=== PATIENT | male | born 1950 | race Caucasian/White ===

== ENCOUNTER 2019-01-14 09:11 | Outpatient (CLI) | payer MEDICARE, OTHER, SELFPAY ==
[2019-01-17 09:29] LABS: PSA, Screening 0.8 ng/ml (0-4.5)
== END 2019-01-14 09:31 ==
PROVIDERS: PCP Emergency Medicine; Visit Provider Emergency Medicine
DX: Z12.5 Encounter for screening for malignant neoplasm of prostate (principal)
CPT/HCPCS: 36415; 84153

== ENCOUNTER 2019-12-29 02:36 | Outpatient (CLI) | payer MEDICARE, OTHER, SELFPAY ==
[2019-12-29 08:01] LABS: Absolute Basophil Count 0.02 k/cumm (0.0-0.2); Absolute Eosinophil Count 0.09 k/cumm (0.0-0.7); Absolute Lymphocyte Count 1.85 k/cumm (1.2-3.4); Absolute Monocyte Count 0.57 k/cumm (0.11-0.7); Absolute Neutrophil Count 4.62 k/cumm (1.2-6.7); Basophils % 0.3; Eosinophils % 1.3; HCT 45.3 % (40.0-50.0); HGB 15.8 g/dL (13.5-17.5); Lymphocytes % 25.9; Mean Corp. HGB Concentration 34.9 g/dL (32.0-36.0); Mean Corpuscular Hemoglobin 32.9 pg (27.0-33.0); Mean Corpuscular Volume 94.4 fL (80-95); Neutrophils % 64.5; Platelet Count 235 x1000/uL (130-400); White Blood Cell Count 7.15 k/cumm (4.4-10.8)
[2019-12-29 08:35] LABS: ESR 8 mm/hr (1-20)
[2019-12-30 10:13] LABS: Lyme Ab w Rflx to Lyme Confirm Negative (Negative)
[2020-01-02 19:22] LABS: Anaplasma phagocytophilum Negative (Negative); B. miyamotoi PCR Negative (Negative); Babesia divergens/MO-1 Negative (Negative); Babesia duncani Negative (Negative); Babesia microti Negative (Negative); Ehrlichia chaffeensis Negative (Negative); Ehrlichia ewingii/canis Negative (Negative); Ehrlichia muris eauclairensis Negative (Negative)
== END 2019-12-29 02:56 ==
PROVIDERS: PCP Emergency Medicine; Visit Provider Family Medicine
DX: M25.50 Pain in unspecified joint (principal)
CPT/HCPCS: 36415; 85652; 87798; 85025; 86618

== ENCOUNTER 2020-07-06 13:22 | Outpatient (CLI) | payer MEDICARE, OTHER, SELFPAY ==
[2020-07-09 21:32] LABS: COVID-19 RT-PCR Result NEGATIVE (Negative)
== END 2020-07-06 13:42 ==
PROVIDERS: PCP Emergency Medicine; Visit Provider Emergency Medicine
DX: Z11.59 Encounter for screening for other viral diseases (principal)
CPT/HCPCS: U0003

== ENCOUNTER 2021-04-29 12:51 | Outpatient (REF) | payer MEDICARE, OTHER, SELFPAY ==
[2021-04-30 14:30] LABS: COVID-19 RT-PCR UVMMC Result Negative (Negative)
== END 2021-04-29 12:52 | disposition home or self-care (01) ==
LOC: LBN 12:51
PROVIDERS: PCP Emergency Medicine; Visit Provider Family Medicine
DX: Z20.822 Contact with and (suspected) exposure to COVID-19 (principal); R05.9 Cough, unspecified
CPT/HCPCS: U0003; U0005

== ENCOUNTER 2021-08-28 08:52 | Outpatient (CLI) | payer MEDICARE, SELFPAY ==
--- NOTE | 2021-08-28 10:50 | DI.MRI_ITS ---
Exam(s) MR LOWER JOINT RT WO EXAM: MR LOWER JOINT RT WO CLINICAL HISTORY: achilles tear, S86.019A TECHNIQUE: Multiplanar multisequence MRI was performed without intravenous contrast. COMPARISON: No exams were available for comparison FINDINGS: SKIN: No evidence of ulcer nor subcutaneous tract. BONES/JOINTS: No evidence of fracture nor bone contusion. No joint effusion is present. The talar do me appears unremarkable. The ankle mortise is maintained. There is no evidence of para-articular ga nglion.There is no evidence of osseous tarsal coalition. LIGAMENTS: The anterior and posterior tibiofibular and calcaneofibular ligaments are intact. The ante rior and posterior talofibular ligaments are intact. The deltoid ligament is intact. SINUS TARSI: There is effacement of the normal fat signal in this space. Interosseous ligament is in tact. There is no evidence of sinus tarsi ganglion cyst. ANTEROLATERAL GUTTER:There is no abnormal signal/abnormal tissue in this space. MUSCULOTENDINOUS STRUCTURES: Achilles tendon: There is a high-grade full thick tear of the Achilles tendon starting 2.5 cm above t he posterior calcaneus insertion and with tear length approximately 6 cm. There are few strands of r emaining tendon within the interspace. Plantar fascia: Unremarkable. No evidence of tear, abnormal thickening, nor abnormal nodularity. Anterior Extensor tendons: Unremarkable. Medial Tendons: Posterior Tibialis: Unremarkable. No tear or tenosynovitis evident. Flexor Digitorum longus: Unremarkable. No tear or tenosynovitis evident. Flexor Hallicus longus: Unremarkable. No tear or tenosynovitis evident. Lateral Tendons: Peroneus longus: Unremarkable. No tear nor tenosynovitis evident. Peroneus brevis:Unremarkable. No tear nor tenosynovitis evident. SOFT TISSUES: Unremarkable. OTHER FINDINGS: None. IMPRESSION: There is a high-grade full-thickness tear of the Achilles tendon. DATA REPOSITORY:
== END 2021-08-28 09:12 ==
LOC: DI 09:01
PROVIDERS: PCP Family Medicine; Visit Provider Emergency Medicine
DX: S86.019A Strain of unspecified Achilles tendon, initial encounter (principal); X58.XXXA Exposure to other specified factors, initial encounter
CPT/HCPCS: 73721; 99203

== ENCOUNTER → 2021-09-11 15:03 | Outpatient (BNVA) | payer MEDICARE, SELFPAY | PROVIDERS: PCP Family Medicine; Referring Provider Family Medicine; Visit Provider Student in an Organized Health Care Education/Training Program | DX: S86.011D Strain of right Achilles tendon, subsequent encounter (principal); X58.XXXD Exposure to other specified factors, subsequent encounter | CPT/HCPCS: 99213 ==

== ENCOUNTER 2021-10-01 20:11 | Outpatient (REF) | payer MEDICARE, SELFPAY ==
[2021-10-01 19:43] LABS: HCT 49.8 % (40.0-50.0); MCH 31.9 pg (27.0-33.0); MCHC 34.1 % (32.0-36.0); MCV 93.4 fL (80-95); MPV 10.2 fL (8.0-11.0); Platelet Count 252 10^3/uL (130-400); RBC 5.33 10^6/uL (4.36-5.78); RDW 11.9 % (11.8-14.1); RDW-SD 41.1 fL; WBC 8.14 10^3/uL (4.4-10.8)
[2021-10-01 20:42] LABS: ALT 25 U/L (16-63); AST 13 U/L (15-37); Albumin 3.9 g/dL (3.4-5.0); Alkaline Phosphatase 52 U/L (46-116); Anion Gap 9.8 mmol/L (3-11); BUN 18 mg/dL (7-18); Bilirubin, Total 0.4 mg/dL (0.2-1.0); CO2 27.2 mmol/L (21.0-32.0); CREATININE 1.2 mg/dL (0.70-1.30); Calcium 8.7 mg/dL (8.5-10.1); Calculated LDL 85 mg/dL (<100); Chloride 106 mmol/L (98-107); Cholesterol 183 mg/dL (<200); Estimated GFR 59.86 (mL/min/1.73m2); Glucose 98 mg/dL (74-106); HDL Cholesterol 44 mg/dL (40-60); Potassium 4.6 mmol/L (3.5-5.1); Sodium 143 mmol/L (136-145); TSH 2.12 uIU/mL (0.36-3.74); Total Protein 7.3 g/dL (6.4-8.2); Triglyceride 271 mg/dL (<150); Vitamin B12 464 pg/mL (193-986)
[2021-10-02 18:21] LABS: PSA, Screening 1.2 ng/mL (0.0-6.5)
== END 2021-10-01 20:12 | disposition home or self-care (01) ==
LOC: LBN 20:11
PROVIDERS: PCP Family Medicine; Visit Provider Emergency Medicine
DX: E03.9 Hypothyroidism, unspecified (principal); R07.9 Chest pain, unspecified; R13.10 Dysphagia, unspecified; R68.89 Other general symptoms and signs; M25.50 Pain in unspecified joint; N40.0 Benign prostatic hyperplasia without lower urinary tract symptoms; Z12.5 Encounter for screening for malignant neoplasm of prostate
CPT/HCPCS: 80053; 80061; 84153; 85027; 82607; 84443

== ENCOUNTER → 2021-10-09 13:46 | Outpatient (BNVA) | payer MEDICARE, SELFPAY | PROVIDERS: PCP Family Medicine; Visit Provider Student in an Organized Health Care Education/Training Program | DX: S86.011A Strain of right Achilles tendon, initial encounter (principal); X58.XXXA Exposure to other specified factors, initial encounter | CPT/HCPCS: 99212 ==

== ENCOUNTER 2021-10-28 12:56 | Outpatient (CLI) | payer MEDICARE, SELFPAY ==
--- NOTE | 2021-10-28 08:10 | DI.US_ITS ---
Exam(s) US LOWER EXTREMITY VENOUS RT EXAM: US LOWER EXTREMITY VENOUS RT CLINICAL HISTORY: r leg swelling; h/o achilles rupture,? dvt. TECHNIQUE: Lower extremity venous ultrasound performed using grayscale, color-flow, and spectral Do ppler analysis. COMPARISON: No exams were available for comparison FINDINGS: The common femoral, femoral and popliteal veins demonstrate normal compressibility, augmentation, and color Doppler. The posterior tibial veins are patent. No saphenous vein thrombosis or other superfi cial venous thrombosis is seen. No hematoma or Castellon's cyst is seen. IMPRESSION: Negative lower extremity ultrasound. No evidence of DVT. DATA REPOSITORY:
== END 2021-10-28 13:16 ==
PROVIDERS: PCP Family Medicine; Visit Provider Nurse Practitioner Family
DX: R22.41 Localized swelling, mass and lump, right lower limb; M79.89 Other specified soft tissue disorders
CPT/HCPCS: 93971

== ENCOUNTER → 2021-11-20 13:02 | Outpatient (BNVA) | payer MEDICARE, SELFPAY | PROVIDERS: PCP Family Medicine; Referring Provider Family Medicine; Visit Provider Student in an Organized Health Care Education/Training Program | DX: S86.011A Strain of right Achilles tendon, initial encounter (principal); X58.XXXA Exposure to other specified factors, initial encounter | CPT/HCPCS: 99213 ==

== ENCOUNTER 2022-01-08 10:20 | Outpatient (CLI) | payer MEDICARE, SELFPAY ==
[2022-01-08 11:43] LABS: CREATININE 1.2 mg/dL (0.70-1.30); Estimated GFR 59.86 (mL/min/1.73m2)
== END 2022-01-08 10:21 | disposition home or self-care (01) ==
LOC: LBO 10:20
PROVIDERS: PCP Family Medicine; Visit Provider Nurse Practitioner Family
DX: U07.1 COVID-19 (principal)
CPT/HCPCS: 36415; 82565

== ENCOUNTER → 2022-01-22 13:18 | Outpatient (BNVA) | payer MEDICARE, SELFPAY | PROVIDERS: PCP Family Medicine; Referring Provider Family Medicine; Visit Provider Student in an Organized Health Care Education/Training Program | DX: S86.011D Strain of right Achilles tendon, subsequent encounter (principal); X58.XXXD Exposure to other specified factors, subsequent encounter | CPT/HCPCS: 99213 ==

== ENCOUNTER → 2022-03-10 08:46 | Outpatient (BNVA) | payer MEDICARE, SELFPAY | PROVIDERS: PCP Family Medicine; Referring Provider Family Medicine; Visit Provider Surgery | DX: Z12.11 Encounter for screening for malignant neoplasm of colon (principal); C44.91 Basal cell carcinoma of skin, unspecified; I25.118 Atherosclerotic heart disease of native coronary artery with other forms of angina pectoris | CPT/HCPCS: 99242 ==

== ENCOUNTER → 2022-03-14 00:31 | Outpatient (CLI) | payer MEDICARE, SELFPAY ==
--- OUTSIDE RECORDS SUMMARY | 2022-03-14 00:35 | XMS_ITS | Encounter Summary ---
:1950 Author Organization [facility] [place] [address] Care Team Providers Name Role Phone OneilScott sage Primary Care Provider Reason for Visit Reason Comments Suture / Staple Removal Encounter Details Date Type Department Care Team Description 04/14/2018 Clinical Support Dermatology at [facility] for suture Road removal [address] [place] [address] Social History Tobacco Use Types Packs/Day Years Used Date Never Smoker Smokeless Tobacco: Never Used Sex Assigned at Date Recorded Not on file documented as of this encounter Progress Notes Myrna Chandler RN - 04/14/2018 8:45 AM EDT Images from the original note were not included. Dermatologic Surgery Post-Operative Wound Check Patient: Bulmaro Rodrigues Today's Date: 04/14/2018 Date of : 1950 Chief complaint: [] Wound check [x] Suture removal History of Present Illness: Bulmaro Rodrigues is a 67 y.o. male who is status post Mohs micrographic excision for basal cell carcinoma, recurrent (twice), infiltrative, located on the right church (site). Surgery date was 04/07/18. The defect was repaired by complex linear closyre. Today, the patient reports contentment with the scar. Patient denies post- operative course complications and had an uneventful post-op course. Examination: Focused examination performed of the surgical site. See photograph below. Assessment: 1. Normal healing post-surgical site without any signs/symptoms of infection. Plan: 1. May discontinue wound care at this point. 2. Bandage is optional from hereon (if going to be exposed to dirt outdoors). 3. Around 8 weeks post-operative, patient may begin firm massage to any parts of the scar that may feel firm to touch, 3 minutes 3 times daily or 10 minutes twice daily. This will feel firm for 3-4 months until sutures dissolve under the skin. 5. Sutures removed 6. Recommend daily SPF 30-50 broad spectrum sunscreen and avoidance of sun to prevent sun-induced hyperpigmentation of scar. Can begin 1 week after suture removal. All other topicals and make-up can begin 1 week after suture removal. Shaving of the area can be resumed 1 week after suture removal (if applicable). Follow up 3 months for possible PDL/Kenalog Ifeanyi Butler MD - 04/14/2018 8:45 AM EDT Staff note: Bulmaro Rodrigues is a 67 y.o. male here for suture removal. Site doing well without s/s of infection.F/u in 3 months Ifeanyi Butler MD Mohs Micrographic Surgery and Dermatologic Oncology Section of Dermatology, Department of Surgery documented in this encounter Plan of Treatment Not on filedocumented as of this encounter Visit Diagnoses Diagnosis Visit for suture removal Encounter for removal of sutures documented in this encounter Care Teams Internet Manager Relationship Specialty Start Date End Date Scott Riggs DO PCP - General Family Medicine 12/25/[address] [place] [address] documented as of this encounter
--- OUTSIDE RECORDS SUMMARY | 2022-03-14 00:35 | XMS_ITS | Encounter Summary ---
:1950 Author Organization [facility] [place] [address] Care Team Providers Name Role Phone OneilScott sage Primary Care Provider Reason for Visit Reason Comments Basal Cell Carcinoma Encounter Details Date Type Department Care Team Description 04/07/2018 Procedure visit Dermatology at [facility], Basal cell carcinoma Road of right rastafari [address] [facility] [id number] [place] [address] [phone] Social History Tobacco Use Types Packs/Day Years Used Date Never Smoker Smokeless Tobacco: Never Used Sex Assigned at Date Recorded Not on file documented as of this encounter Last Filed Vital Signs Vital Sign Reading Time Taken Comments Blood Pressure 125/66 04/07/2018 8:48 AM EDT Pulse 52 04/07/2018 8:48 AM EDT Temperature - - Respiratory Rate - - Oxygen Saturation - - Inhaled Oxygen Concentration - - Weight - - Height - - Body Mass Index - - documented in this encounter Patient Instructions Patient InstructionsSo Perez, [facility] - 04/07/2018 8:45 AM EDT Your staff surgeon today was Ifeanyi Butler MD. Your wound(s) was repaired by [id number] stitches called a primary repair. You do not need to come back for suture removal because only absorbably sutures were used today. If the absorbable sutures bother your skin or do not absorb after 2 weeks, you may call us to remove them for you. Instructions are as below. Please keep this as a reference: Wound Care For wounds closed with absorbable-only stitches: ??? Gently remove your initial bandage (after 48 hours from surgery) and begin wound care as below. ??? If your initial bandage only lasts 24 hours (for example, falls off sooner), this is okay. Resume your wound care and bandaging instructions as below. ??? Change your bandage once a day (and whenever it becomes wet or soaks through). DO WOUND CARE FORONE WEEK. ??? For bandage changes: o Wash hands with soap and water, or use gloves that you can purchase a local pharmacy or drug store. o Clean the surgical area with cotton-tipped swabs or gauze dipped in soapy water (recommend liquid soap in clean room temperature water). Do not scrub the area or put direct shower water pressure ontoyour wound. It is okay to allow soapy water to run over your wound in the shower. o If you cannot remove crusted areas, you may soak with wet gauze first for 15 to 20 minutes to helpsoften it o Pat the area dry with clean gauze or cotton swabs. Do not rub. o Use a cotton swab to apply a generous layer of petroleum jelly over the incision lines and any open-wound areas. o Cover with clean nonstick gauze or other nonstick dressing, such as Telfa. This may be purchased over the counter at a drug store. Secure with paper tape or bandage. Band-aids are okay, but typicallyhave more adhesive that can irritate the skin compared to paper tape. o Continue wound care daily until stitches are removed. o Discontinue wound care after 7 days. o Allow the absorbable stitches to heal. If the top stitches that are absorbable are irritating yourskin, you may call us to have them removed. Otherwise, they will be absorbed naturally in approximately 2 weeks. It may absorb as quickly as 4 days. After Surgery 1. Avoid tobacco, smoking/vapors, cigars, and cannabis (marijuana) for at least 3 weeks after your surgery. These prevent proper healing and lead to worse scarring. Cutting back on tobacco is helpful if you cannot abstain completely. 2. Do not drink alcohol for roughly 3 days as this can slow healing or cause bleeding. 3. Do not participate in athletic activities for 1 week, unless you were told a different timeline during your visit. Athletic activity is a relative term, but this is considered to be anything that could potentially raise your heartrate or blood pressure. Elevating your heart rate and blood pressure increases the risk of swelling, bleeding, wound opening, and it could lead to worse scarring. Walkingat a leisurely pace is fine for most people, but not if you are walking for the purpose of exercise.When in doubt, take it easy or call us. 4. Do not lift anything heavier than 10 pounds until your sutures are removed. 5. Some it program manager may need to be delayed or delegated such as vacuuming, mowing the lawn, snow shoveling, or caring for young children that need to be carried/lifted. Working any major muscle groups increases your heart rate and can increasing bleeding. 6. Avoid swimming, hot tubs, and direct water pressure for 3 weeks after surgery. You may shower, however, once your initial bandage comes off in 48 hours. 7. Avoid antibiotic ointments such as triple antibiotic creams. Stick with your wound care instructions, please. 8. Whenever possible, it is helpful to take photographs with your camera or cell phone of any problems or concerns you see with your wound. We often ask for photos when you call with questions. 9. Starting 2 months following surgery, you can begin firm massage to any areas of firm scar along your incision to soften the scar and reduce bumpiness. Do this 3 times per day, 3 minutes each time. Do not start massage before 2 months. 10. Your wound will appear almost completely healed soon after sutures are removed (about 1 week), but incisions can remain bright red for several weeks. Then the scarring and healing process continuesunder the skin for 6 months until to 2 years. The scar may become less red, less firm, and more subtle during this time; please note that the rate of improvement varies depending on the person. Most redness, discoloration, bumpiness resolves by 6 months, and most patients will look presentable within a few weeks after surgery. 11. Keep your follow-up appointments and make sure to continue to have your skin checked, as often as is recommended by your checker bakery products, for new skin cancers. This is once per year for most patients. 12. Your can expect your scar to be red for several weeks with gradual fading of the redness. Your scar will also be raised and lumpy until the dissolvable sutures under the skin get absorbed by your body which can take 3-4 months. The scar will flatten eventually. a. If you have a skin condition called rosacea, the redness can last long-term, or you can get an increased appearance of red vessels to the skin. The appearance of vessels slightly improves, but tendsto respond well to laser treatments. 13. Occasionally, about 20% of the time on the face, the stitches under the skin can spit out of the incision to the surface. It can start out looking like a pimple or blemish directly on your incision. Sometimes you can feel something poking through the incision. it can look also minic a small areaof infection, so please let us know before you go to another provider for antibiotics. This means that the suture may need to be trimmed or removed when you return for your wound check. This typically occurs a few weeks after surgery if it does occur. 14. To optimize your scar, and best cosmetic result, please avoid direct sunlight to your incision for the first 6 months following surgery. UV ray exposure to your incision may cause the redness to last longer, or to cause permanent darkening of your scar. You can avoid sun by covering your incision w ith a bandage when outdoors, wearing broad-rimmed hats, and wearing SPF 30 to 50 sunscreen (broad spectrum). 15. Sometimes after your sutures are removed, your incision may still be healing for 1 more week. Because of this, avoid make-up and sunscreen until approximately 2 weeks after surgery. You can begin sooner if your skin edges look completely sealed. 16. Any time you have skin surgery or any type of surgery, you can experience mild sensation loss (numbness) in the area of surgery. Massage starting at 8 weeks after surgery can help. 17. Swelling and bruising is common, and expected, especially if your surgery site was on the forehead, cheeks, temples, nose, or eyelids. . Sometimes it can be quite profound, where the eyelids swell shut, or getting black eyes. This is especially true if you are on blood thinners such as aspirin. Swelling and bruising will peak at about 48 hours after surgery. Bruising and swelling will graduallyresolve. You can use ice packs or a bag of frozen peas for 15-20 minutes, 20 minutes off, up to 3-4 times daily to areas of swelling on the face. Use caution not to put the icy item directly onto your incision, or directly in contact with your skin as this can damage skin. Avoid prolonged use more than 20 minutes. The best way to use ice packs is over the bandage, or using a light cloth/paper towel barrier between the ice pack and your skin. You can ice for as many days as needed until swelling has resolved. Eyelid and lip swelling is typically the last type of swelling to resolve. o Keep in mind that if you do not want to use a bandage at all due to difficulty, allergies, irritation of skin, cost, time, or inconvenience --- you can certainly avoid bandages altogether. However, itis imperative that you continue with topical petrolatum ointment or Aquaphor (plain, fragrance-free). This may need to be applied several times daily if it gets wiped off, washed off, or dries out. Things to purchase for wound care: -Nonstick gauze -A tube or tub of petrolatum jelly (fragrance-free, no dye, not lotion) -paper tape -cotton swabs -gloves (optional) -Dial or other antibacterial liquid soap If you have specific questions or instructions, it can be written/typed by your nurse or doctor here: Antibiotics: If you were given antibiotic prescription, it is important to start them the evening of your surgerydate. However, most patients do not need antibiotics after surgery. For pain: Most patients of different ages do not require pain medications. If you do feel soreness, throbbing or sharp pains, start by taking over the counter extra strength acetaminophen (up to 3000 mg in a 24 hour period). Generally, we like you to avoid NSAIDS (non-steroid anti-inflammatory drugs such as ibuprofen) for the first 48 hours after surgery as this can increase risk of bleeding. However, if acetaminophen is not helping with pain, you can alternate acetaminophen with iburpofen or other NSAID. Icepacks over your bandage without getting your bandage wet can also help with pain and swelling. Frozen peas work well as ice packs. THIS IS AN EXAMPLE OF A PAIN TREATMENT SCHEDULE: 1) You can take 500 mg acetaminophen one tablet by mouth at 6:00pm. This is over the counter. 2) You can take 400 mg of ibuprofen two hours later, at 8:00 pm, or other NSAID such as naproxen, aslong as it does not interact with your other medications and your other doctors have not told you toavoid this. This is over the counter. Check to see how many milligrams (mg) each of your ibuprofen tablets are. Most of the time, ibuprofen comes in 200 mg tablets, so 400 mg would mean taking two of these tablets or capsules. 3) You can take 500 mg of acetaminophen at 10:00 pm. Keep track of your total acetaminophen in a 24 hour period as your maximum should be 3000 mg total in a 24 hour period of this medication. 4) At midnight, you can take another 400 mg of ibuprofen. 5) you can continue on this schedule over the next 2 days, making sure to keep tabs of your total acetaminophen. If you are still in pain after trying the above, please call us. When to call your surgeon: ??? Fever of 100.4 degrees Fahrenheit or higher ??? Bleeding not controlled with direct firm pressure to your wound. Bleeding is most common in the first 48 hours. ??? Pain that is worsening and not relieved by over the counter medications such as acetaminophen (up to 3000 mg in a 24 hour period) ??? Wound reopening after stitching ??? Pus or bad odor from your wound ??? Worsening redness and warmth around your wound ??? If you think your surgery site is infected, please call us before seeking care or antibiotics from other providers ??? Please call us before seeking care in an emergency room or primary care. ??? If you do call, please leave your full name, phone number, date of , date of surgery, and medical record number if you have it. If after hours, please call the blanket cutting machine operator or [phone] and ask for the checker bakery products on-call. If you have any non-urgent questions or concerns, please feel free to call my office or contact me through our patient portal, [facility], at [email or web address] How to contact us during business hours Dermatology at [facility] [address]: Mohs scheduling or Mohs follow-up appointments: [phone] documented in this encounter Progress Notes Ifeanyi Butler MD - 04/07/2018 8:45 AM EDT Mohs consultation and preoperative note (H&P) Patient Name: Bulmaro Rodrigues Age: 67 y.o. Date of : 1950 Today's Date: 04/07/2018 REFERRING PROVIDER: Jennifer Novoa MD CC: Mohs micrographic surgery for treatment of a cutaneous tumor HPI: Bulmaro Rodrigues is a 67 y.o. male presenting for Mohs micrographic surgery. The dermatologic preoperative information sheet was reviewed with pertinent positive and negative listed as below. DERMATOLOGIC PRE-OPERATIVE EVALUATION AND REVIEW OF SYSTEMS (Check those that apply) Yes No Yes No [x] [] Prior skin cancer(s)? BCC, right rastafari [] [x] Organ transplant (type/year)? [] [x] History of melanoma? [] [x] History of radiation to head/neck areas for skin cancer [] [x] Heart disease? [] [x] Cardiac stents? [] [x] Valve replacement (which valves and year)? [] [x] Pacemaker? [] [x] Defibrillator? [] [x] Joint replacement or scheduled for one soon? (how long ago) [] [x] Hearing aids? [] [x] Cochlear, cosmetic, or other implants? [] [x] Hypertension (controlled/not controlled)? [] [x] Lung Disease/COPD/asthma? And If yes, do youhave difficulty lying flat due to breathing? [] [x] Dementia/stroke? [] [x] Liver disease? [] [x] Other cancers? [] [x] Hepatitis or HIV? [] [x] Diabetes (Type 1 or 2?) [] [x] Bleeding disorder? [] [x] History of reaction to suture or glue [] [x] Fibromyalgia or extreme sensitivity to pain? [] [x] Personal history of addiction to alcohol, drugs, or prescription medications? [] [x] Basal cell nevus syndrome (ie genetic syndromes that predispose to skin cancer) [] [x] Have you EVER had a prior prosthetic joint infection? [] [x] Any drugs that suppress your immune system such as prednisone that you are taking regularly? [] [x] Other (scarring issues, relevant anesthesia allergies, needle phobia, anxiety, etc): [] [x] History of congenital heart defects where a prosthetic device was placed (at or childhood)? BLOOD THINNERS: 81mg ASA Yes No [] [x] NSAIDS [] [x] Fish oil/Multivitamin/Vit E/?? supplements?? (discontinue 1 week before and after surgery) [] [x]???natural?? medicines not prescribed by a physician (discontinue 1 week before and after) SOCIAL HISTORY: Occupation: Retired Distance driven today: About 1 hour, currently working as a president of a non-profit Makes Own Decisions: Yes Who is accompanying patient today (and relationship to patient): Who lives with patient (i.e. spouse, children, custodial/correction)? Spouse Relevant travel history or future plans: None Prior bed tanning use: None Does patient need any assistive devices: None Sunscreen use: Yes Tobacco use (amount per day, type of tobacco. If no tobacco, former smoker?): No Alcohol use (type and amount per day - daily, occasional, never): Yes, less than 1 drink per day Marital status: Highest grade completed: Graduate school Is the patient literate (ie can patient read and write)?: Yes Any physical limitations?: None ALLERGIES: Allergies Allergen Reactions ??? Penicillins Hives MEDICATIONS: Current Outpatient Prescriptions Medication Sig Dispense Refill ??? aspirin 81 mg Tablet, Delayed Release (E.C.) Take 1 tablet by mouth daily. 30 tablet 0 ??? nitroGLYcerin (NITROSTAT) 0.4 mg Tablet, Sublingual Place 1 tablet under the tongue every 5 minutes as needed for Chest pain. (Patient not taking: Reported on 04/07/2018) 90 tablet 0 No current facility-administered medications for this visit. VITAL SIGNS: BP 125/66 (BP Location (NBP): Left arm, Patient Position: Sitting, BP Cuff Sizes: Adult (25-34 cm)) Pulse 52 PHYSICAL EXAMINATION: General: patient is awake, alert, oriented and in no acute distress. Skin: Focused examination of surgical site(s) performed which shows an erythematous scar corresponding with recent biopsy site. PHYSICIAN REVIEW OF REPORTS, RECORDS, IMAGES: 1) Biopsy slide(s) was/were requested and reviewed today by the Mohs surgeon prior to surgery and I agree with diagnosis in the associated pathology report. 2) The accompanying pathology report(s) associated with aforementioned biopsy slide(s) were/was alsoreviewed. Assessment/Plan: Bulmaro Rodrigues is a 67 y.o. male presenting for: 1. 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 Twice excised by general surgery (Excised in 2011 with positive margins. Also excised in 2013 with tumor very closely approaching the margin.) Plan to proceed with Mohs micrographic surgery and repair. Patient declined referral to plastic surgery. See operative report. Discussion: 1. Findings from the biopsy report, my independent review of the histopathology from the biopsy slides, today's clinical exam, and other pertinent details were reviewed with patient today. We discussedfactors specific to the patient including the likely defect size and likely repair options based on the initial clinical picture. All questions were answered. 2. Discussed treatment options based on the above findings. I recommended Mohs micrographic surgery for treatment of this tumor. Mohs micrographic surgery was indicated due to patient, site and/or tumor characteristics (see operative report for specific indication). 3. We discussed risks, benefits, and alternative treatment options to the Mohs micrographic surgery procedure and pertinent information including but not limited to the following: ?? Risks include bleeding, infection, scar, recurrence, loss of sensation. Risks include incomplete tumor removal or inability to cure with surgery alone if the tumor itself has features that are more aggressive than the initial pathology indicated, which cannot be known until tissue is evaluated. Occasionally, additional adjuvant treatments may be recommended based on frozen section tumor features. Additional risks include large wound, prolonged wound and healing, pain, swelling, bruising, increased appearance of vessels or worsening erythema of baseline skin; more rarely risks include damage to underlying structures such as nerves, cartilage, or muscle which could lead to temporary or permanent loss of sensation or motor function. ?? Benefit is precise tumor removal ?? If reconstruction is performed, it is specific to the patient and defect and takes account the patient's features, age, and preferences. Discussed that each defect is unique to the patient. ?? Discussed that the shape, size, depth of the wound is often not known until the tumor is cleared and thus the reconstruction options are sometimes not known until after tumor clearance. Occasionally, referrals to other providers may be recommended for reconstruction based on patient preference and need. ?? Reviewed the pros and cons of common reconstructions used for this tumor type, size, and location, and that reconstruction may lead to change in appearance. ?? Natural history of scar was discussed, including that the scar will continue to mature for 1-2 years. Recommended massage after 8 weeks to the scar, and especially avoidance of direct sun exposure to the scar for optimal recovery for at least 6 months. ?? Reviewed that there are some aspects of cosmesis that are dependent on patient's characteristics such as age, skin laxity/texture factors, size of pores, inflammatory skin diseases such as rosacea or rhinophyma, prior surgery/radiation, degree of current sun damage, smoking status, strength of the patient's immune system, ability of patient to follow diligent wound care instructions, medications, and genetics. ?? Having Mohs surgery may lead to physical limitations for optimal healing, such as restricted physical activity and heavy lifting. The degree of limitations and duration depends on the specific size of the defect and reconstruction type. 4. The nature of sun-induced photo-aging and skin cancers was discussed. Recommended sun avoidance when possible, especially peak hours of sun 10 am to 2pm, protective clothing such as wide-brimmed hats and long-sleeved clothing, and the use of SPF broad-spectrum sunscreen SPF 30 to 50. 5. Signs and symptoms of skin cancer reviewed. Patient to report any new, changing, or symptomatic lesions and follow up with his or her referring checker bakery products or other skin provider. Summary of Procedure(s): 1. Please see operative report for complete details. Mohs micrographic surgery was performed today, with tumor-free peripheral and deep margins. Please note that there is a pathology report from the biopsy, but no official pathology report for the Mohs surgery is generated. Rather, the operative report serves as the final margin assessment. Briefly, after clinical removal of the tumor, the tumor cleared after 2 stage(s) of Mohs micrographic excision. The final defect after Mohs surgery was repaired by complex linear closure. Follow up in 1 week for suture removal. We discussed today risk of temporal nerve transection. We discussed eye swelling/bruising risk. Discussed he will feel asymmetric for 3-4 months due to the large defect size and the tension, but this will improve gradually over time. Ifeanyi Butler MD Mohs Micrographic Surgery and Dermatologic Oncology Section of Dermatology, Department of Surgery Ifeanyi Butler MD - 04/07/2018 8:45 AM EDT Mohs micrographic Surgery Operative Report Patient name: Bulmaro Rodrigues : 1950 Date: 04/07/2018 Staff Surgeon: Ifeanyi Butler MD Nursing/Dairy Products Maker(s): Nicole Sanon, Myrna Jones Construction Teacher (s): Sofya Son Pre-operative diagnosis: basal cell carcinoma, recurrent (twice), infiltrative Post-operative diagnosis: same as above Location/Site: right rastafari Procedure: Mohs micrographic surgery Indication(s) for Mohs micrographic surgery: critical anatomic location Stages: 2 Preoperative size of tumor: 2.5 x 3.0 cm Final defect size: 3.5 x 3.1 cm Stage I The nature and purpose of the procedure, associated risks, possible consequences and complications,and alternative forms of treatment were explained in detail. We reviewed the possible repairs based on the clinical appearance of tumor but discussed that often the repair options may not be known until the tumor has gonzález extirpated. Informed consent and permission to take photographs were obtained. The site was confirmed with the patient/authorized data entry representative/referring physician and/or a photograph form time of biopsy. A pre-operative time-out (procedural pause) was conducted with no unresolved d iscrepancies noted. Local anesthesia was obtained with 1% lidocaine with 1:100,000 epinephrine. The surgical site was prepped and draped in the usual sterile manner. Clinically apparent tumor was removed by curette. With all visible gross tumor completely excised, the borders of the tumor and 2-3 mm margins were excised as a complete layer. Hemostasis was achieved by electrocoagulation. The excised tissue was oriented and divided into 3 sections, chromacoded, and submitted for frozen sections. The patient tolerated the procedure well and without complications. On microscopic evaluation of the frozen sections, residual tumor was identified as basal cell carcinoma, infiltrative on section A1 and A2 (see section number on map). Stage II The surgical site was re-anesthetized with 1% lidocaine with 1:100,000 epinephrine, re-prepped and redraped in a sterile manner. The residual tumor was re-excised as a complete layer 2-3mm in thickness using the Mohs map to delineate area of residual tumor. Hemostasis was achieved with electrocoagulat ion. The tissue was oriented and divided into 2 sections, chromacoded, and submitted for frozen sections. The patient tolerated the procedure well and without complications. On microscopic evaluation of the frozen sections, no residual tumor was identified on the deep or outer border of the sections. The final size of the defect after complete tumor removal was 3.cm, extending to fat. Ifeanyi Butler MD Repair Operative Report (Complex Linear Repair) Patient name: Bulmaro Rodrigues : 1950 Clinical Diagnosis: 3.5 x 3.1 cm surgical defect secondary to Mohs microscopically controlled excision Location/Site: right rastafari Indication: repair of wound for mandaen of function/anatomy Procedure: Complex linear layered closure of Mohs defect Due to the size and location of the defect resulting from the complete removal of the tumor, the postoperative risk of hemorrhage, infection, and the possibility of serious deformity from scarring, and in order to restore proper function and prevent loss of function, the defect was closed in the following manner. The nature and purpose of the procedure, associated risks, possible consequences, complications andalternative methods of treatment were explained to the patient in detail. An informed consent was obtained. The operative site was anesthetized with 1% lidocaine with 1:100,000 epinephrine. The site was prepped and draped in the usual sterile manner. The edges of the defect were widely undermined at the dermal subcutaneous layer in all directions. The edges could then be approximated without excess tension. Hemostasis was achieved with electrocoagulation. Redundant adjacent tissue was removed as needed. The deep tissues were apposed and sutured with 4-0 Monocryl, 3-0 Monocryl, 5-0 Monocryl sutures and the epidermal edges were approximated with 6-0 fast absorbing gut running and/or interrupted sutures. The resulting complex linear closure measured 7.0 cm. The surgical site was cleaned and white petrolatum with a Xeroform gauze pressure dressing applied.The patient tolerated the procedure well and without complications and was given both verbal and written instruction on postoperative wound care. Follow up in one week to remove remaining absorbable sutures. The patient was discharged in good condition. Total local anesthesia with 1% lidocaine with 1:100,000 epinephrine used: 19 cc Total local with 0.25% bupivacaine with 1:100,000 epinephrine used: 3 cc Staff Surgeon: Ifeanyi Butler MD Mohs Micrographic Surgery and Dermatologic Oncology Section of Dermatology, Department of Surgery documented in this encounter Plan of Treatment Not on filedocumented as of this encounter Visit Diagnoses Diagnosis Basal cell carcinoma of right rastafari reg ion Basal cell carcinoma of skin of other an d unspecified parts of face documented in this encounter Care Teams Workers Compensation Claims Examiner Relationship Specialty Start Date End Date Scott Riggs DO PCP - General Family Medicine 12/25/[address] [place] [address] documented as of this encounter
--- OUTSIDE RECORDS SUMMARY | 2022-03-14 00:35 | XMS_ITS | Encounter Summary ---
:1950 Author Organization [facility] Address [facility] [place] [address] Care Team Providers Name Role Phone Scott Riggs Primary Care Provider Encounter Details Date Type Department Care Team Description 12/31/2017 Telephone Dermatology at [facility] Myrna Chandler RN [address] [place] [address] Social History Tobacco Use Types Packs/Day Years Used Date Never Smoker Smokeless Tobacco: Never Used Sex Assigned at Date Recorded Not on file documented as of this encounter Miscellaneous Notes Telephone Encounter - Myrna Chandler RN - 12/31/2017 2:59 PM EDT This note is to document that this patient has declined Mohs consultation at the request of Dr. Butler prior to scheduling Mohs Surgery. The reason for the consultation ahead of his surgery day to discuss that given his twice recurrent tumor, he would have a lower than typical Mohs cure rate, that his risk for temporal nerve loss would be higher, and potentially requiring a larger reconstruction and potential reconstruction by plastic surgery. These were our reasons for requesting patient come in for consult ahead of time, and not to evaluate about whether the site NEEDS Mohs surgery. This discussion would have been to better prepare the patient rather than hearing all of this at thetime of surgery. We will move forward with scheduling his Mohs surgery at this time. documented in this encounter Plan of Treatment Not on filedocumented as of this encounter Visit Diagnoses Not on filedocumented in this encounter Care Teams Appeals Examiner Relationship Specialty Start Date End Date Scott Riggs DO PCP - General Family Medicine 12/25/[address] [place] [address] documented as of this encounter
--- OUTSIDE RECORDS SUMMARY | 2022-03-14 00:35 | XMS_ITS | Encounter Summary ---
:1950 Author Organization [facility] [place] [address] Care Team Providers Name Role Phone Scott Riggs DO Primary Care Provider Reason for Visit Consultation (Routine) - Closed Specialty Diagnoses / Procedures Referred By Contact Refer red To Contact Dermatology Diagnoses BCC Scott Riggs DO Aaron, Denise M, MD Procedures PT WOULD LIKE APPOINTMENT ON THE SAME DAY HIS , SCARLET GLYNN. PATIENT WOULD LIKE APPOINTMENT ON 07/07 OR 07/09...BOTH TOGETHER. [address] [facility] [address] [place] [address] [facility] [place] [address] Phone: Fax: Referral ID Status Reason Start Date Expiration Date Visits V isits Requested Authorized [id number] Closed Consult, 04/27/2018 04/27/2019 1 [facility] Encounter Details Date Type Department Care Team Description 07/06/2018 Clinical Support Dermatology at [facility], Visit for wound Road check [address] [place] [address] [place], [place] [phone] Social History Tobacco Use Types Packs/Day Years Used Date Never Smoker Smokeless Tobacco: Never Used Sex Assigned at Date Recorded Not on file documented as of this encounter Progress Notes Raffin, Myrna A, RN - 07/06/2018 9:15 AM EST Images from the original note were not included. Dermatologic Surgery Post-Operative Wound Check Patient: Bulmaro Rodrigues Today's Date: 07/06/2018 Date of : 1950 Chief complaint: [x] Wound check [] Suture removal History of Present Illness: Bulmaro Rodrigues is a 68 y.o. 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 Surgery date was 04/07/18 The defect was repaired by complex linear closure. Today, the patient reports contentment with the scar. Patient denies post- operative course complications and had an uneventful post-op course. Examination: Focused examination performed of the surgical site. See photograph below Assessment: 1. Normal healing post-surgical site without any signs/symptoms of infection. Small areas where hairtrapped in incision line- removed without incident Plan: 1. May discontinue wound care at this point. 2. May scrub incision vigorously to help keep hair our of incision 43 Around 8 weeks post-operative, patient may begin firm massage to any parts of the scar that may feel firm to touch, 3 minutes 3 times daily or 10 minutes twice daily. This will feel firm for 3-4 months until sutures dissolve under the skin. 4. Recommend daily SPF 30-50 broad spectrum sunscreen and avoidance of sun to prevent sun-induced hyperpigmentation of scar. Can begin 1 week after suture removal. All other topicals and make-up can begin 1 week after suture removal. Shaving of the area can be resumed 1 week after suture removal (if applicable). Follow up: [x] follow up to Mohs as needed; discharged back to referring physician for skin examinations documented in this encounter Plan of Treatment Not on filedocumented as of this encounter Visit Diagnoses Diagnosis Visit for wound check Encounter for other specified aftercare documented in this encounter Care Teams Plasterer Maintenance Relationship Specialty Start Date End Date Scott Riggs DO PCP - General Family Medicine 12/25/[address] [place] [address] [address] [place] [address] documented as of this encounter
--- OUTSIDE RECORDS SUMMARY | 2022-03-14 00:35 | XMS_ITS | Encounter Summary ---
:1950 Author Organization [facility] [place] [address] Care Team Providers Name Role Phone Unknown Primary Care Provider Unavailable Encounter Details Date Type Department Care Team Description 04/01/2016 Orders Only [place] [facility] Sousa ASCVD (arteriosclerotic [facility] BRIAN Schrader cardiovascular disease) [facility] [address] CARDIOLOGY DEPT. [phone] [place] [id number] Social History Tobacco Use Types Packs/Day Years Used Date Never Assessed Sex Assigned at Date Recorded Not on file documented as of this encounter Plan of Treatment Not on filedocumented as of this encounter Procedures Procedure Name Priority Date/Time Associated Diagnosis Comme nts CARDIAC CATHETERIZATION Routine 04/16/2016 9:16 ASCVD R esults for this AM EDT (arteriosclerotic procedure are in cardiovascular the results disease) section. documented in this encounter Results CARDIAC CATHETERIZATION (04/16/2016 9:16 AM EDT) Specimen (Source) Anatomical Location Collection Method / Collectio n Time Received Time / Laterality Volume Narrative CARDIOMAC SYSTEM - 04/16/2016 9:43 AM ED T ?[facility] ? Cardiac Cathete rization/Intervention Report ? Patient Name: Diehl, Bulmaro ? Procedure Date: 04/16/2016 ? A #: [id number] ? Primary Physician: Piña, Slick J ? Case #: [id number] ? File Name: [id number] ? Catheterization Order Number: [id number] ? [facility] ? Final Report [place], [place] ? Patient Name: ? Bulmaro Diehl ?ID#: ?[id number] ? : ?1950 ? Procedure Date: ? March 28, 2 016 ? Case #: ? [id number] ? Room: ? 1 ? Case Physician: ? Slick lewis M.D. ? Start: ?08:18 ?Fellow: ? Naun figueroa M.D. ? Admission: ??04/16/2016 ? Discharge: ??04/16/2016 ? Referring ? Scott luna M.D. ? Physicians: ?Kyle R Heitzman, M.D. ? Procedures: ?* Coronary Angiography ?* Left Heart Catheterization ? History ?Bulmaro Diehl is a 65 year old man. He has a family history of coronary ?artery disease. The patient has untreated hypercholesterolemia. He has ?stable angina and a history of chest pain. The patient also has a history ?of an abnormal stress test. Megan or to the initiation of this procedure, ?the patient was designated as A SA Class II. ? Patient Status at Catheterization: ?The patient presented with: sta ble angina (w/i 42 days). [place] ?Cardiovascular Society angina c lass was II. An echo stress test was ?performed and results were Posi tive and Low Risk ischemia assessment. ? Technique: ?A 6 SLFr sheath was inserted in the right radial artery utilizing the ?Seldinger technique. The left c oronary artery was injected utilizing a ?5Fr Tig 4.5 catheter. A 5Fr Tig 4.5 catheter was used to inject the right ?coronary artery. Left ventricul ar pressure was performed with a 5Fr Tig ?4.5 catheter. 5,000 units of he khadra were administered. A total of 200cc ?of Omnipaque were opened, 80cc of Omnipaque were administered and 120cc ?of Omnipaque were wasted. Radia tion: Fluoro time was 4.3 minutes, dose ?area product was 63,253 mGYcm2 and air kerma was 924 mGY. ?The patient received the follow ing medications prior to and during the ?procedure: Aspirin (any) and Un fractionated Heparin (any). ? Hemodynamics: ?Left Heart Pressures ? Resting: ? Syst D iast ? EDP ?a ?v ? m ?Ao 125 ?? 60 ?85 ?LV 138 ? 16 ? Coronary Angiography: ?Dominance: Right ?Left Main ? The left main was normal . ?Left Anterior Descending ? There was mild diffuse d isease of the entire vessel segment of the ? left anterior descending artery (LAD). ??The LAD was large. ??The ? distal 2 segment of the LAD had a single discrete 50% stenosis. ? There was a 60% single d iscrete stenosis of the ostial segment of ? the first diagonal branc h (Diagonal 1) of the LAD. ??The Diagonal 1 ? was small. ? There was a 70% single d iscrete stenosis of the ostial segment of ? the first septal branch (1st Septal) of the LAD. ??The 1st Septal was ? moderate in size. ?Left Circumflex ? There was mild diffuse d isease of the entire vessel segment of the ? left circumflex artery ( LCX). ??The LCX was large. ??The proximal ? segment of the LCX had a single discrete 35% stenosis. ?Right Coronary Artery ? There was mild diffuse d isease of the entire vessel segment of the ? right coronary artery (R CA). ??The RCA was large. ??The mid 2 segment ? of the RCA had an eccent russell single discrete 50% stenosis. ? Vascular Access: ?Vascular Access Management: ? Mechanical Compression o f the right radial artery access site was ? performed. ? Conclusions: ?* Two vessel coronary artery di sease (LAD and RCA) ? Complications/Events: ?The patient had no complication s during these procedures. ? Recommendations: ?Based upon the results of this procedure, it was recommended that the ?patient be managed with medical therapy. ? Comments: ?Radial Access ?Access was obtained in the [facility] radial artery using micropuncture ?technique after confirming a no rmal Allens test. ??A 0.035 Nav-Torque wire ?was used to navigate the aortic arch vessels and to track a 5 Fr Tig 4.5 ?catheter to the aortic root. ?? At the conclusion of the case, all sheaths ?and catheters were removed and a Vascular Band was applied for hemostasis ?over the radial access site. ?? Neurovascular supply to the hand was intact ?at the conclusion of the case. ?The attending physician was presen t for the entire procedure. ?Dr. Slick Piña M.D. perform ed the coronary angiography and left ?heart catheterization. ? Slick Piña M.D. ? Electronically Signed by: Slick card M.D. ? Report Finalized: 04/16/2016 ??09:35 ? Report Last Ammended: 06/23/2016 ??14:59 ? Procedure Note Slick Piña MD - 06/23/2016Format ting of this note might be different from the original. [facility] Cardiac Catheterization/Intervention Re port Patient Name: Bulmaro Diehl Procedure Date: 04/16/2016 A #: [id number] Primary Physician: Slick Piña Case #: [id number] File Name: [id number] Catheterization Order Number: [id number] [facility] Final Report [place], [place] Patient Name: Bulmaro Diehl ID#: [id number] : 1950 Procedure Date: April 16, 2016 Case #: [id number] Room: 1 Case Physician: Slick Piña M.D. S tart: 08:18 Fellow: Naun Muñoz M.D. Admission: 04/16/2016 Discharge: 04/16/2016 Referring Scott Riggs M.D. Physicians: Kyle Ramirez M.D. Procedures: * Coronary Angiography * Left Heart Catheterization History Bulmaro Diehl is a 65 year old man. He has a family history of coronary artery disease. The patient has untreat ed hypercholesterolemia. He has stable angina and a history of chest pa in. The patient also has a history of an abnormal stress test. Prior to e initiation of this procedure, the patient was designated as ASA Class II. Patient Status at Catheterization: The patient presented with: stable gino na (w/i 42 days). [place] Cardiovascular Society angina class was II. An echo stress test was performed and results were Positive and Low Risk ischemia assessment. Technique: A 6 SLFr sheath was inserted in the rig ht radial artery utilizing the Seldinger technique. The left coronary artery was injected utilizing a 5Fr Tig 4.5 catheter. A 5Fr Tig 4.5 cat heter was used to inject the right coronary artery. Left ventricular press ure was performed with a 5Fr Tig 4.5 catheter. 5,000 units of heparin we re administered. A total of 200cc of Omnipaque were opened, 80cc of Omnip aque were administered and 120cc of Omnipaque were wasted. Radiation: Fl uoro time was 4.3 minutes, dose area product was 63,253 mGYcm2 and air kerma was 924 mGY. The patient received the following medi cations prior to and during the procedure: Aspirin (any) and Unfraction ated Heparin (any). Hemodynamics: Left Heart Pressures Resting: Syst Diast EDP a v m Ao 125 60 85 LV 138 16 Coronary Angiography: Dominance: Right Left Main The left main was normal. Left Anterior Descending There was mild diffuse disease of the e ntire vessel segment of the left anterior descending artery (LAD). The LAD was large. The distal 2 segment of the LAD had a singl e discrete 50% stenosis. There was a 60% single discrete stenosi s of the ostial segment of the first diagonal branch (Diagonal 1) of the LAD. The Diagonal 1 was small. There was a 70% single discrete stenosi s of the ostial segment of the first septal branch (1st Septal) of the LAD. The 1st Septal was moderate in size. Left Circumflex There was mild diffuse disease of the e ntire vessel segment of the left circumflex artery (LCX). The LCX w as large. The proximal segment of the LCX had a single discret e 35% stenosis. Right Coronary Artery There was mild diffuse disease of the e ntire vessel segment of the right coronary artery (RCA). The RCA wa s large. The mid 2 segment of the RCA had an eccentric single disc rete 50% stenosis. Vascular Access: Vascular Access Management: Mechanical Compression of the right rad ial artery access site was performed. Conclusions: * Two vessel coronary artery disease (L AD and RCA) Complications/Events: The patient had no complications during these procedures. Recommendations: Based upon the results of this procedur e, it was recommended that the patient be managed with medical therapy . Comments: Radial Access Access was obtained in the right radial artery using micropuncture technique after confirming a normal All ens test. A 0.035 Nav-Torque wire was used to navigate the aortic arch ve ssels and to track a 5 Fr Tig 4.5 catheter to the aortic root. At the con clusion of the case, all sheaths and catheters were removed and a Vascul ar Band was applied for hemostasis over the radial access site. Neurovascu lar supply to the hand was intact at the conclusion of the case. The attending physician was present for the entire procedure. Dr. Slick Piña M.D. performed th e coronary angiography and left heart catheterization. Slick Piña M.D. Electronically Signed by: Slick card M.D. Report Finalized: 04/16/2016 09:35 Report Last Ammended: 06/23/2016 14:59 Slick Piña MD CARDIAC CATH ORDERABLES Performing Organization Address City/State/ZIP Code Phon e Number CARDIOMAC SYSTEM documented in this encounter Visit Diagnoses Diagnosis ASCVD (arteriosclerotic cardiovascular d isease) Unspecified cardiovascular disease ASCVD (arteriosclerotic cardiovascular d isease) Unspecified cardiovascular disease documented in this encounter Care Teams Beater And Pulper Feeder Relationship Specialty Start Date End Date Unknown PCP - General 03/20/16 12/24/17 None documented as of this encounter
--- OUTSIDE RECORDS SUMMARY | 2022-03-14 00:35 | XMS_ITS | Encounter Summary ---
:1950 [place] [address] Care Team Providers Name Role Phone Unknown Primary Care Provider Unavailable Reason for Visit Auth/Cert Specialty Diagnoses / Procedures Referred By Contact Refer red To Contact Diagnoses ASCVD Procedures CARDIAC CATHETERIZATION Referral ID Status Reason Start Date Expiration Date Visits Requ ested Visits Authorized [id number] 1 1 Encounter Details Date Type Department Care Team Description 04/16/2016 Surgery Manager Medicare Marketing Slick Purdy , CARDIAC CATHETERIZATION [facility] [place] [address] CARDIOLOGY DEPT. [phone] [place], [place] [address] (Wo rk) Social History Tobacco Use Types Packs/Day Years Used Date Never Assessed Sex Assigned at Date Recorded Not on file documented as of this encounter Last Filed Vital Signs Vital Sign Reading Time Taken Comments Blood Pressure 154/71 04/16/2016 8:12 AM EDT Pulse 46 04/16/2016 8:12 AM EDT Temperature 36.4 ??C (97.5 ??F) 04/16/2016 6:33 AM EDT Respiratory Rate 12 04/16/2016 8:12 AM EDT Oxygen Saturation 97% 04/16/2016 8:12 AM EDT Inhaled Oxygen Concentration - - Weight 86.2 kg (190 lb) 04/16/2016 6:33 AM EDT Height 185.4 cm (6' 1) 04/16/2016 6:33 AM EDT Body Mass Index 25.07 04/16/2016 6:33 AM EDT documented in this encounter Discharge Summaries Slick Piña MD - 04/16/2016 10:02 AM EDT Same Day Cardiac Catheterization Discharge Summary: After informed consent Bulmaro Rodrigues underwent diagnostic cardiac catheterization (coronary angiography and left heart catheterization) via a 6 Fr sheath in the right radial artery. Left heart catheterization shows LV = 138/16 mmHg. Coronary angiography shows mild diffuse disease of the left and right coronaries. The left main is normal. The dominant RCA has a discrete eccentric 50% stenosis in the M2 segment. The LAD has a 50% eccentric stenosis in the very distal segment, 70% ostial stenosis of the first septal director of corporate strategy and the first diagonal branch has an ostial 60% stenosis but is a small vessel. The left circumflex is a large vessel and has a proximal 35% eccentric stenosis. Findings: 1.Two vessel coronary artery disease (LAD and RCA - see above). 2. Normal left ventricular end diastolic pressure. Plan: 1. He tolerated the procedure well and was transferred to the CRU in stable condition where his radial sheath was removed. After observation and ambulation he was discharged from the same day unit per discharge protocol. 2. The findings were reviewed with Mr. Rodrigues, his Dr. Scarlet Glynn and Dr. Ramirez the referring stave hewer. 3. Plans are for medical therapy. He will be started on atorvastatin 40 mg po daily, low dose aspirin 81 mg po daily and prn SL nitroglycerin. Prescriptions were sent to his pharmacy. 4. Cardiology follow-up will continue with Dr. Ramirez. Slick Piña MD, [facility] Staff Associate Manager 04/16/2016 documented in this encounter Discharge Instructions Discharge InstructionsRuth Garcia - 04/16/2016 11:46 AM EDT Activity If you are discharged the same day as your procedure, do not drive yourself home. Arrange to have another person drive. You may walk around when you get home, but keep your activity at a minimum until the morning. Do not bend over, strain, or lift heavy objects for 24 hours after the procedure. Do not participatein active sports for 48 hours. You may engage in sexual activity after 48 hours. These restrictions will not apply if the catheter was placed in a blood vessel in your arm. Catheter Insertion Area Care Take the band-aid off the catheter insertion area the morning following the procedure. You may take a shower if you wish. Wash the area with soap and water. Look for signs of infection over the next several days. A little spot of blood at the catheter insertion area is not unusual. A bruise or small lump under the skin is normal; they generally disappear in 3-4 days. For the first several days at home if you cough or sneeze, hold your groin to help prevent bleeding. Expect some mild tenderness over the area where the catheter was inserted. You will notice this after the local anesthetic (numbing medicine) wears off. This should improve during the 24-48 hours afterthe procedure. Take tylenol if needed. Contact your doctor if the discomfort worsens. Problems to Watch For If there is bright red blood flowing from the catheter insertion area: *stop what you are doing and lie down *Hold pressure steadily on the area for 15 minutes *Call for Help *If the bleeding does not stop in 15 minutes call 911 for an ambulance. If there is swelling with black and blue color at the catheter insertion area, there may be bleeding inside. Contact the doctor if there is any increase in size. Look at the insertion site for the first few days at home. Signs of infection are: *redness *Swelling *Yellow, white, green or brown foul smelling drainage. *increased soreness If you think there is an infection, take your temperature. Then call your doctor. The limb on the side where you had your catheterization should look and feel normal in its color, sensation, and temperature. If your leg becomes cool, pale, blue or changing color with numbness and tingling, contact your doctor. If you feel faint or dizzy, lie down with your feet elevated. Have someone call the doctor. If you are alert, drink fluids. How to Deal with Chest pain If you had only the cardiac catheterization, treat any angina or chest discomfort as instructed. Stop what you are doing, and sit or lie down. If prescribed, take nitroglycerin under your tongue. If the angina isn't relieved, take another nitroglycerine in 5 minutes. After another 5 minutes, a third ni troglycerine may be taken. If the angina isn't improved you should call for an ambulance to bring you to the nearest hospital emergency room. If your angina is more frequent or more sever than before, contact your doctor. We usually would not expect to have angina after an angioplasty. If you do get angina, treat it as you did before but also contact your doctor. Return to Work The doctor will usually have told you when to return to work. If you do not perform heavy physical labor, most people can return to work in a few days. Diet Follow your previous diet unless otherwise instructed. Cardiac Risk Factors If you have coronary artery disease, it is important that you help control it by reducing your cardiac risk factors. If you smoke, we urge you to stop now. If you think this is going to be a problem, let us know so that we may help you. We have dieticians who can help you learn about low fat, low cholesterol diet. Cardiac rehabilitation programs can help you set up a regular exercise program. Work with your doctor if you have high blood pressure or sugar diabetes to keep these under control. Medications ____Take your usual medications ____Medication changes: If you are taking medicines prescribed by your doctor, do not take any hqjq-pqq-ewjjgbs medicines orherbal preparations without first discussing this with your doctor or pharmacist. There is the possibility of side effect and interactions when these are combined. Follow up Care Who to Call with Questions or Problems If there are any questions or problems that you think might be related to your cardiac cath or angioplasty, contact the stave hewer registration manager by calling [facility] at . POST ANESTHESIA INSTRUCTIONS Go home, rest, use caution on stairs. Change positions slowly. Do not smoke if you are alone. Diet light to regular as tolerated today. If nausea occurs start with clear liquids and progress slowly. No driving, operating machinery, alcoholic beverages and no important decisions for 24 hours. Monitor IV site for signs and symptoms of infection: increasing redness, swelling, foul drainage, ifoccurs contact M.D. Patients who have had endotrachial tubes (this tube, used by anesthesia department, is passed down your throat after you are asleep, to ensure safe air passage during your operation). A sore throat is normal due to the tube. Cold liquids or soothing lozenges will help ease the discomfort. The generalized muscle aches are due to the medication given to you just before the tube is inserted. As the medication wears off, you may develop muscle soreness, which usually goes away in 12-24 hours. documented in this encounter Medications at Time of Discharge Medication Sig Dispensed Refills Start Date End Date nitroGLYcerin (NITROSTAT) Place 1 tablet 90 tablet 0 2015 0.4 mg Tablet, Sublingual under the tongue every 5 minutes as needed for Chest pain. aspirin 81 mg Tablet, Take 1 tablet by 30 tablet 0 04/16/20 16 Delayed Release (E.C.) mouth daily. atorvastatin (LIPITOR) 40 Take 1 tablet by 30 tablet 0 03/2104/02/2018 mg Tablet mouth daily. documented as of this encounter Progress Notes Jesus Montejo RN - 04/16/2016 11:53 AM EDT ABSORB IV CONSENT NOTE ABSORB IV RANDOMIZED CONTROLLED TRIAL A Clinical Evaluation of Absorb??? BVS, the Everolimus Eluting Bioresorbable Vascular Scaffold in the Treatment of Subjects with de suha [place] Coronary Artery Lesions PI: Bright Lopez MD Pager #:[phone] Consent: I met with Bulmaro Rodrigues and reviewed the ABSORB IV trial. Following the determination this potential participant did not have any obvious evidence of clinical exclusion to the ABSORB IV Randomized Controlled Trial, the subject was provided with a written informed consent ([facility] date 01/18/2015) and was given adequate time for review of the consent. The purpose, procedures, risks, potential benefits of the study, as well as alternatives to participation were reviewed and questions were answered. The subject signed the informed consent at 0710 agreeing to participate, providing angiographic inclusioncriteria are satisfied. The subject was provided with a copy of the signed informed consent document. No study related activities were performed prior to completion of the consent process. Subject Enrollment, Randomization and Registration: - Subjects are considered enrolled in ABSORB IV after signing the Informed Consent. - Subjects are considered randomized in ABSORB IV after the interactive voice response system (IVRS)has been called and a device (Absorb BVS or XIENCE) has been assigned. - Subjects are considered registered in the ABSORB IV upon randomization. Coronary angiography in the cardiac catheterization lab revealed non-obstructive coronary artery disease this qualifies as an angiographic screen fail. Mr. Rodrigues was not enrolled in the ABSORB IV trial. documented in this encounter H&P Notes Naun Muñoz MD - 04/16/2016 7:41 AM EDT 24H H&P update 65 year old man presenting for elective LHC and coronary angiography. There has been no change since his visit with Dr. Ramirez in March. He is on no meds. Exam Vitals: 04/16/16 0633 BP: 146/69 Pulse: (!) 42 Resp: 12 Temp: 36.4 ??C (97.5 ??F) Well appearing JVP normal Lungs clear CV regular, S1, normal S2, grade 1 benign flow murmur at the base, no S3/4 No edema Normal right Willie's Labs reviewed. Normal CBC, Cr, K. No INR He has an abnromal treadmill echo from earlier this month showing inferior ischemia at peak stress Impression: 1. Possible stable angina 2. No traditional cardiac risk factors aside from age and sex Plan Proceed to laboratory courier Plan radial approach The indications, expected benefits, and potential risks of heart catheterization were reviewed in detail with the patient. The potential for , heart attack, stroke, kidney failure, hemorrhage, allergic reaction, vascular complications and infection were reviewed in detail. The possibility of stenting and other percutaneous intervention, with associated risk, was reviewed. The possible need for emergent coronary artery bypass surgery was reviewed. Alternatives were discussed and the patient's questions were answered in full. Following this discussion, the patient consented to the procedure and signed a form attesting to this. Naun Muñoz MD Manager Industrial Pager [phone] documented in this encounter Plan of Treatment Not on filedocumented as of this encounter Procedures Procedure Name Priority Date/Time Associated Diagnosis Comme nts EKG 12-LEAD Routine 04/16/2016 6:43 AM ASCVD (arterioscleroti c Results for this EDT cardiovascular disease) proc edure are in the results section. documented in this encounter Results EKG 12 Lead (04/16/2016 6:43 AM EDT) Component Value Ref Range Test Analysis Performed Pathologis t Method Time At Signature Ventricular rate 41 BPM MUSE SYSTEM Atrial Rate 41 BPM MUSE SYSTEM P-R Interval 170 ms MUSE SYSTEM QRS Duration 96 ms MUSE SYSTEM Q-T Interval 488 ms MUSE SYSTEM QTC Calculated 402 ms MUSE SYSTEM (Bezet) Calculated P [place] 37 degrees MUSE SYSTEM Calculated R [place] 34 degrees MUSE SYSTEM Calculated T [place] 49 degrees MUSE SYSTEM INTERPRETATION Marked sinus bradycardia with marked sinus arrhythmia MUSE SYSTEM Nonspecific T wave abnormality Anterior leads Abnormal ECG No previous ECGs available Confirmed by MD RAPHAEL, ROMAN ([id number]) on 04/16/2016 8:35:3 2 AM Specimen Anatomical Collection Method Collection Time Receive d Time (Source) Location / / Volume Laterality 04/16/2016 6:43 AM 6 8:35 EDT AM EDT Slick Piña MD ECG ORDERABLES Performing Organization Address City/State/ZIP Code Phon e Number MUSE SYSTEM documented in this encounter Visit Diagnoses Diagnosis ASCVD (arteriosclerotic cardiovascular d isease) Unspecified cardiovascular disease ASCVD (arteriosclerotic cardiovascular d isease) Unspecified cardiovascular disease documented in this encounter Administered Medications Inactive Administered Medications - up to 3 most recent administrations Medication Order MAR Action Action Date Dose Rate Site acetaminophen (TYLENOL) tablet 650 mg 650 mg, Oral, EVERY 6 HOURS PRN, Startin g on Thu04/16/16 at 0927, Until Thu04/16/16 at 1354, Pain, For Mild Pain, Maximum dose of acetamin ophen is 4000 mg from all sources in 24 hours., Recovery (Recovery-Hospital Unit ), Routine aspirin chewable tablet Given 04/16/2016 8:25 AM EDT 324 mg ONCE PRN, Starting on Thu04/16/16 at 0825, Until Thu04/16/16 at 0916, Intra-Operative (Intra-Procedure), Routine fentaNYL 50 mcg/mL multi-dose injection Given 04/16/2016 8:17 AM EDT 25 mcg ONCE PRN, Starting on Thu04/16/16 at 0817, Until Thu04/16/16 at 0916, Cath (Intra-Procedure), Routine heparin (porcine) injection Given 04/16/2016 8:45 AM EDT 5,000 Units ONCE PRN, Starting on Thu04/16/16 at 0845, Until Thu04/16/16 at 0916, Cath (Intra-Procedure), Routine iohexol (OMNIPAQUE) 350 mg/mL solution Given 04/16/2016 9:16 AM EDT 80 mLs ONCE PRN, Starting on Thu04/16/16 at 0916, Until Thu04/16/16 at 0916, Cath (Intra-Procedure), Routine midazolam (PF) (VERSED) 1 mg/mL multi-dose Given 04/16/2016 8:17 AM EDT 1 mg injection ONCE PRN, Starting on Thu04/16/16 at 0817, Until Thu04/16/16 at 0916, Cath (Intra-Procedure), Routine nitroGLYcerin 100 mcg/mL intracoronary Given 04/16/2016 8:43 AM EDT 150 mcg dilution ONCE PRN, Starting on Thu04/16/16 at 0843, Until Thu04/16/16 at 0916, Cath (Intra-Procedure), Routine sodium chloride 0.9 % flush 5 mL 5 mL, Intravenous, EVERY 12 HOURS, First dose on Thu at 0700, Until Discontinued, Cath (Day of Procedure), Routine sodium chloride 0.9 % flush 5-20 mL 5-20 mL, Intravenous, EVERY 1 MIN PRN, S tarting on Thu04/16/16 at 0632, Until Thu04/16/16 at 1354, flush, Flush pertains t o all indwelling lines. Flush per protocol found in the job aid using the link prov ided on this medication record., Cath (Day of Procedure), Routine sodium chloride 0.9% infusion Continued Bag 04/16/2016 9:45 AM 150 mL/hr 150 mL/hr 150 mL/hr, Intravenous, EDT CONTINUOUS, Starting on Thu04/16/16 at 0945, Until Thu04/16/16 at 1144, Recovery (Recovery-Hospital Unit) verapamil (ISOPTIN) injection Given 04/16/2016 8:43 AM EDT 2.5 mg ONCE PRN, Starting on Thu04/16/16 at 0843, Until Thu04/16/16 at 0916, Administer over 2 Minutes, Cath (Intra-Procedure) documented in this encounter Active and Recently Administered Medications Times are shown in EDT. Scheduled Medication Order 04/14/2016 04/15/2016 04/16/2016 sodium chloride 0.9 % flush 5 mL 0700 (Due) 5 mL, Intravenous, EVERY 12 HOURS, First dose on Thu04/16/16 at 0700, Until Discontinued, Cath (Day of Procedure), Routine Continuous Medication Order 04/14/2016 04/15/2016 04/16/2016 sodium chloride 0.9% infusion 09 45 (Continued Bag - Provider: Carol Ann Cobos- Modesta RN - Comment: over 2 hours, 300 ml total) 150 mL/hr, at 150 mL/hr, Intravenous, CO NTINUOUS, Starting Thu04/16/16 at 0945, Until Thu04/16/16 at 1144, Recovery (Recovery-Hospital Unit) PRN Medication Order 04/14/2016 04/15/2016 04/16/2016 acetaminophen (TYLENOL) tablet 650 mg 650 mg, Oral, EVERY 6 HOURS PRN, Startin g Thu04/16/16 at 0927, Until Thu04/16/16 at 1354, Pain, For Mild Pain, Maximum dose of acetaminophen is 4000 mg from all sources in 24 hours., Recovery (Recovery-Hospital Unit), Routine aspirin chewable tablet (CANCELED) 0825 (Given - Provider: Juan José Alan) ONCE PRN, Starting Thu04/16/16 at 0825, Until Thu04/16/16 at 0916, Intra- Operative (Intra-Procedure), Routine fentaNYL 50 mcg/mL multi-dose injection (CANCELED) 0817 (Given - Provider: Juan José Alan) ONCE PRN, Starting Thu04/16/16 at 0817, Until Thu04/16/16 at 0916, Cath (Intra- Procedure), Routine heparin (porcine) injection (CANCELED) 0845 (Given - Provider: Juan José Alan) ONCE PRN, Starting Thu04/16/16 at 0845, Until Thu04/16/16 at 0916, Cath (Intra- Procedure), Routine iohexol (OMNIPAQUE) 350 mg/mL solution (CANCELED) 0916 (Given - Provider: Slick Piña MD) ONCE PRN, Starting Thu04/16/16 at 0916, Until Thu04/16/16 at 0916, Cath (Intra- Procedure), Routine midazolam (PF) (VERSED) 1 mg/mL multi-dose injection (CANCELED) 08 (Given - Provider: Juan José Alan) ONCE PRN, Starting Thu04/16/16 at 0817, Until Thu04/16/16 at 0916, Cath (Intra- Procedure), Routine nitroGLYcerin 100 mcg/mL intracoronary dilution (CANCELED) 08 (Given - Provider: Slick Piña MD) ONCE PRN, Starting Thu04/16/16 at 0843, Until Thu04/16/16 at 0916, Cath (Intra- Procedure), Routine oxyCODONE-acetaminophen (PERCOCET) 5-325 mg per tablet 1 tablet 1 tablet, Oral, EVERY 4 HOURS PRN, Start ing Thu04/16/16 at 0926, Until Thu04/16/16 at 1110, Pain, May repeat in 30 minutes if pain is not relieved, Cath (Recovery-Hospital Unit), Routine sodium chloride 0.9 % flush 5-20 mL 5-20 mL, Intravenous, EVERY 1 MIN PRN, S tarting Thu04/16/16 at 0632, Until Thu04/16/16 at 1354, flush, Flush pertains to all indwelling lines. Flush per protocol found in the job aid using the link prov ided on this medication record., Cath (Day of Procedure), Routin e verapamil (ISOPTIN) injection (CANCELED) 08 (Given - Provider: Slick Piña MD) ONCE PRN, Starting Thu04/16/16 at 0843, Until Thu04/16/16 at 0916, Administer over 2 Minutes, Cath (Intra-Procedure) documented in this encounter Care Teams Skill Training Program Coordinator Relationship Specialty Start Date End Date Unknown PCP - General 03/20/16 12/24/17 None documented as of this encounter
--- OUTSIDE RECORDS SUMMARY | 2022-03-14 00:35 | XMS_ITS | Encounter Summary ---
:1950 [place] [address] Care Team Providers Name Role Phone Unknown Primary Care Provider Unavailable Reason for Visit Auth/Cert Specialty Diagnoses / Procedures Referred By Contact Refer red To Contact Diagnoses ASCVD Procedures CARDIAC CATHETERIZATION Referral ID Status Reason Start Date Expiration Date Visits Requ ested Visits Authorized [id number] 1 1 Encounter Details Date Type Department Care Team Description 04/16/2016 Hospital Encounter Same Day Program at [facility] A NEVD Katerine Perez MD (arteriosclerotic [facility] cardiovascular [facility] DR disease) [facility] CARDIOLOGY [place], [place] DEPT. [id number] [place], [place] [phone] [id number] Social History Tobacco Use Types Packs/Day Years Used Date Never Assessed Sex Assigned at Date Recorded Not on file documented as of this encounter Last Filed Vital Signs Vital Sign Reading Time Taken Comments Blood Pressure 143/72 04/16/2016 11:35 AM EDT Pulse 43 04/16/2016 11:28 AM EDT Temperature 37 ??C (98.6 ??F) 04/16/2016 11:35 AM EDT Respiratory Rate 14 04/16/2016 11:28 AM EDT Oxygen Saturation 97% 04/16/2016 11:35 AM EDT Inhaled Oxygen Concentration - - [...] 70% ostial stenosis of the first septal internal medicine veterinary technician and the first diagonal branch has an [...] Scarlet Glynn and Dr. Ramirez the referring team physician. 3. Plans are for medical therapy. He will be started on atorvastatin 40 mg po daily, low dose aspirin 81 mg po daily and prn SL nitroglycerin. Prescriptions were sent to his pharmacy. 4. Cardiology follow-up will continue with Dr. Ramirez. Slick Piña MD, [facility] Staff Waterway Traffic Checker 04/16/2016 documented in this encounter Discharge Instructions [...] by your doctor, do not take any zgrh-tuj-slhsiqq medicines orherbal preparations without first discussing this with your doctor or pharmacist. There is the possibility of side effect and interactions when these are combined. Follow up Care Who to Call with Questions or Problems If there are any questions or problems that you think might be related to your cardiac cath or angioplasty, contact the team physician concaving machine operator by calling [facility] at . POST ANESTHESIA INSTRUCTIONS Go home, [...] the Treatment of Subjects with de suha [place] Coronary Artery Lesions PI: Bright Lopez MD Pager #:[phone] Consent: I met with Bulmaro Ravi and reviewed the ABSORB IV trial. Following the determination this potential participant did not have any obvious evidence of clinical exclusion to the ABSORB IV Randomized Controlled Trial, the subject was provided with a written informed consent ([facility] date 01/18/2015) and was given [...] from age and sex Plan Proceed to dental laboratory supervisor Plan radial approach The indications, expected benefits, [...] form attesting to this. Naun Muñoz MD Market Research Assistant Pager [phone] documented in this encounter Plan of Treatment [...] 402 ms MUSE SYSTEM (Bezet) Calculated P [place] 37 degrees MUSE SYSTEM Calculated R [place] 34 degrees MUSE SYSTEM Calculated T [place] 49 degrees MUSE SYSTEM INTERPRETATION Marked sinus [...] 24 hours., Recovery (Recovery-Hospital Unit ), Routine sodium chloride 0.9 % flush 5 [...] Until Thu04/16/16 at 1144, Recovery (Recovery-Hospital Unit) documented in this encounter Active and Recently [...] 45 (Continued Bag - Provider: Carol Ann Byers RN - Comment: over 2 hours, 300 [...] (PF) (VERSED) 1 mg/mL multi-dose injection (CANCELED) 816 (Given - Provider: Juan José Alan) ONCE PRN, Starting Thu04/16/16 at 0817, Until Thu04/16/16 at 0916, Cath (Intra- Procedure), Routine nitroGLYcerin 100 mcg/mL intracoronary dilution (CANCELED) 842 (Given - Provider: Slick Piña MD) ONCE PRN, Starting Thu04/16/16 at 0843, Until Thu04/16/16 at 09, Cath (Intra- Procedure), Routine oxyCODONE-acetaminophen (PERCOCET) 5-325 [...] Procedure), Routin e verapamil (ISOPTIN) injection (CANCELED) 842 (Given - Provider: Slick Piña MD) ONCE PRN, Starting Thu04/16/16 at 0843, Until Thu04/16/16 at 0916, Administer over 2 Minutes, Cath (Intra-Procedure) documented in this encounter Care Teams Candles Pourer Relationship Specialty Start Date End Date Unknown PCP - General 03/20/16 12/24/17 None documented as of this encounter
--- OUTSIDE RECORDS SUMMARY | 2022-03-14 00:35 | XMS_ITS | Encounter Summary ---
:1950 Author Organization [facility] [place] [address] Care Team Providers Name Role Phone OneilScott sage Primary Care Provider Reason for Visit Reason Comments Skin Lesion ? recurrent infiltrative BCC Consultation (Routine) - Closed Specialty Diagnoses / Procedures Referred By Contact Refer red To Contact Dermatology Diagnoses basal cell on face Victoriano Torres MD [facility] Dermatology [address] [place], [place] [address] [place] [address] Fax: Referral ID Status Reason Start Date Expiration Date Visits V isits Requested Authorized [id number] Closed Consult, 11/26/2017 11/26/2018 1 1 [facility] Encounter Details Date Type Department Care Team Description 12/25/2017 Office Visit Dermatology at [facility] Jennifer Novoa Ba ping cell carcinoma Yaron GONZALEZ (BCC) of skin of [address] [facility] [place] [address] [facility] [place], [place] [address] Social History Tobacco Use Types Packs/Day Years Used Date Never Smoker Smokeless Tobacco: Never Used Sex Assigned at Date Recorded Not on file documented as of this encounter Progress Notes Jennifer Novoa MD - 12/25/2017 9:45 AM EDT Images from the original note were not included. DERMATOLOGY CONSULT NOTE Date of service: 12/25/2017 Bulmaro Rodrigues : 1950 Provider: Jennifer Novoa MD Chief Complaint Patient presents with ??? Skin Lesion ? recurrent infiltrative BCC The patient is seen at the request of Scott Riggs DO, who instructed the patient to be seen for evaluation of above: SKIN HX: Skin cancer: Right lutheran: BCC - excised 2011, re-excised 2012 at [facility] Skin disease: No Sun exposure: Yes, high Tanning bed use: No Suncreen: Yes Family Skin History: Skin cancer: No Skin disease: No PATIENT PREFERENCES Preferred name: Tj Preferred contact method with results: Home phone Detailed message including biopsy results okay?: Yes Are there any other people with whom we may discuss your care?: (Scarlet) FAIZA Rodrigues is a 67 y.o. male, new patient, referred here today, accompanied by his Scarlet (a internal medicine, palliative care physician), for evaluation of a possible recurrent basal cell carcinoma on his right lutheran. Previously excised and re-excised at [facility]; infiltrative BCC with perineural invasion and close deep and peripheral margins on re-excision.in 2011. Patient brought both surgical pathology reports to have scanned into his chart. Reports that the lesions has continued to scale and scab over on-and-off for the past 5 years. Denies pain and tenderness. Says that his (physician) and PCP monitors his skin for new or suspicious lesions; declines routine derm f/u for skin cancer screening. ADR: Penicillins MEDS: Current Outpatient Prescriptions Medication Sig Dispense Refill ??? nitroGLYcerin (NITROSTAT) 0.[address], [address] 1 tablet under the tongue every 5 minutes as needed for Chest pain. 90 tablet 0 ??? aspirin 81 mg Tablet, Delayed Release (E.C.) Take 1 tablet by mouth daily. 30 tablet 0 ??? atorvastatin (LIPITOR) 40 mg Tablet Take 1 tablet by mouth daily. (Patient not taking: Reported on 12/25/2017) 30 tablet 0 No current facility-administered medications for this visit. ROS General: feeling well Skin: denies other skin complaints EXAM General: NAD, pleasant, cooperative Skin: Focused exam of the right lutheran. Significant Skin Findings: A. Right lutheran: 1.5 cm indurated, heme-crusted plaque. [Figure A] Figure A Photo(s) taken and charted by MORGAN Burkett with patient's verbal consent. ASSESSMENT/PLAN: A. Recurrent Infiltrative Basal Cell Carcinoma - Recommended treating with Mohs surgery. (Okay'd by Myrna Chandler RN, to proceed without re-biopsying.) Patient agrees with this plan. Answered all questions. - Explained that he will be contacted by Dr. Butler's medical secretary, Imani Slater, to schedule the procedure. Will ask that Imani request slides. I am documenting this encounter acting as the scribe for and in the presence of Dr. Novoa: MORGAN Burkett I performed the above scribed service and agree with the accuracy of the documentation in this encounter. Jennifer Novoa MD Section of Dermatology [facility] cc: Scott Riggs DO documented in this encounter Plan of Treatment Not on filedocumented as of this encounter Visit Diagnoses Diagnosis Basal cell carcinoma (BCC) of skin of ot her part of face documented in this encounter Care Teams Credit Report Checker Relationship Specialty Start Date End Date Scott Riggs DO PCP - General Family Medicine 12/25/[address] [place] [address] documented as of this encounter
--- OUTSIDE RECORDS SUMMARY | 2022-03-14 00:36 | XMS_ITS | Encounter Summary ---
:[address] [facility] Address [address] [place] [address] Care Team Providers Name Role Phone Scarlet Glynn MD Primary Care Provider Encounter Details Date Type Department Care Team Description 10/02/2021 Lab Requisition [facility] Outr Resulting Lab, Pathology & Laboratory Provider General acute hospital [address] [place], [place] [id number] Social History Tobacco Use Types Packs/Day Years Used Date Never Assessed Sex Assigned at Date Recorded Not on file documented as of this encounter Plan of Treatment Not on filedocumented as of this encounter Procedures Procedure Name Priority Date/Time Associated Comments Diagnosis PSA TOTAL, Routine 10/01/2021 15:10 Results for this DIAGNOSTIC EDT procedure are i n the results section. documented in this encounter Results PSA TOTAL, DIAGNOSTIC (10/01/2021 15:10 EDT) Pathologist Sig nature PSA 1.2 0.0 - 6.5 ng/mL [facility] Specimen Blood - Venous blood (substance) Narrative [facility] - 10/02/2021 18:16 EDT NOTE: Serum PSA concentration should not be in terpreted as absolute evidence for the presence or absence of malignant disease. Assayed on Siemens ADVIA Centaur XPT usi ng chemiluminescent technology.??Values obtained by using different assay methods cannot be used interchangeably. Performing Organization Address City/State/ZIP Code Phon e Number [facility] [address] [place] [address] SERVICES documented in this encounter Visit Diagnoses Not on filedocumented in this encounter Care Teams Director Private Music Therapy Agency Relationship Specialty Start Date End Date Dobbertin, Scarlet M, MD PCP - General 04/01/[address] [place] [phone] documented as of this encounter
--- OUTSIDE RECORDS SUMMARY | 2022-03-14 00:36 | XMS_ITS | Clinical Summary ---
:1950 Author Organization [facility] Address [address] [place] [address] Care Team Providers Name Role Phone Scarlet Glynn MD Primary Care Provider Social History Tobacco Use Types Packs/Day Years Used Date Never Assessed Sex Assigned at Date Recorded Not on file Plan of Treatment Health Maintenance Due Date Last Done Comments Hepatitis C Screen 1950 COVID-19 Vaccine (1) 1956 Fall Risk Screening 2016 Care Teams Polarity Tester Relationship Specialty Start Date End Date Scarlet Glynn MD PCP - General 04/01/[address] [place] [phone]
--- OUTSIDE RECORDS SUMMARY | 2022-03-14 00:37 | XMS_ITS | Encounter Summary ---
:1950 Author Organization [facility] Address [address] [place] [address] Care Team Providers Name Role Phone Unavailable Primary Care Provider Unavailable Encounter Details Date Type Department Care Team Description 02/22/2008 Hospital Encounter [facility] - Khadijah Mcintosh, DO [address] [facility] [address] [facility] [place] [address] [place], [place] [phone] (Wo rk) Social History Tobacco Use Types Packs/Day Years Used Date Never Assessed Sex Assigned at Date Recorded Not on file documented as of this encounter Discharge Disposition Disposition Code Departure Means Destination Home or Self Care documented in this encounter Plan of Treatment Not on filedocumented as of this encounter Procedures Procedure Name Priority Date/Time Associated Diagnosis Comme nts SURGICAL PATHOLOGY Routine 02/22/2008 0:00 EDT Re sults for this procedure are i n the results section. documented in this encounter Results SURGICAL PATHOLOGY (02/22/2008 0:00 EDT) Pathology Report: SURGICAL PATHOLOGY REPORT ? [facility] Reports generated via [employer] interface contain original data; ? LAB however they are lacking the format of the original report. ? Caution should be taken when reading/interpreting unformatted reports. ? Name: ? RODRIGUES, CONNIE ? Accession #: ? [id number] ? : ? 1950 (Age: 57) ??M ? Collec t Date: ? 02/22/2008 ? Location: ? [facility] ? R eceive Date: ? 02/23/2008 ? Provider: JENNIFER KONG SON DO ? Copy to: SCARLET M DOBBERTIN M D ? Final Pathologic Diagnosis: ? Rectum, polyp, biopsy : ? 1. ??Hyperplastic alanna yp. ? 2. ??No adenomatous m ucosa identified. ? Document reviewed and electr onically signed by: ? Dee J. Butnor, MD ? Report ??Date: 02/24/2008 18 :25 ? By the signature above, the attending physician certifies that he/she has ? personally conducted a gross and/or microscopic examination of the described ? specimens and rendered or co nfirmed the above diagnosis. ? Specimen(s) Received: ? Bx rectal polyp ? Clinical History: ? Colon Ca screening ? Gross Description: ? Received in Hollande' s fixative labelled Rodrigues and biopsy rectal polyp is a 0.3 x 0.2 x 0.2 cm fang tissue fragment. ?? The specimen is submitted intact in one cassette. ??(Dr. Staton ed)/tmg ? End of Report ? Specimen Performing Organization Address City/State/ZIP Code Phon e Number [facility] [address] [place] [address] SERVICES [facility] [address] [place] [address] documented in this encounter Visit Diagnoses Not on filedocumented in this encounter
--- OUTSIDE RECORDS SUMMARY | 2022-03-14 00:37 | XMS_ITS | Encounter Summary ---
:1950 Author Organization [facility] Address [address] [place] [address] Care Team Providers Name Role Phone Unavailable Primary Care Provider Unavailable Encounter Details Date Type Department Care Team Description 03/26/2012 Results Only [facility] Dereje Cohen , Laboratory Services - [address] [place] [address] [place], [place] [id number] [phone] Social History Tobacco Use Types Packs/Day Years Used Date Never Assessed Sex Assigned at Date Recorded Not on file documented as of this encounter Plan of Treatment Not on filedocumented as of this encounter Procedures Procedure Name Priority Date/Time Associated Diagnosis Comme [facility] SURGICAL PATHOLOGY Routine 03/26/2012 0:00 EDT Re sults for this procedure are i n the results section. documented in this encounter Results SURGICAL PATHOLOGY (03/26/2012 0:00 EDT) Pathology Report: SURGICAL PATHOLOGY REPORT [facility] Reports generated via electronic interface contain branden ginal data; LAB however they are lacking the format of the original re port. Caution should be taken when reading/interpreting unfo rmatted reports. Name: ? CONNIE RODRIGUES ? Accession #: ? [id number] ? : ? 1950 (Age: 61) ??M ? Collect Date: ? 03/26/2012 ? Location: ? [facility] ? Receive Date: ? 012 ? Provider: DEREJE COHEN DO Copy to: SCARLET GLYNN MD ? Final Pathologic Diagnosis: ? Skin of protestant, right, excision: 1. ?Basal cell carcinoma, infiltrative ty pe. ??See comment. ? - Focal perineural invasion identified . ?- Margins of excision positive. ?- Basal cell carcinoma exten ds to the peripheral and deep margins. Comment: ? These results were phoned to Dr. Dereje Cohen's office. ??(Dr. Gill)/joshua Document reviewed and electronically signed by: EDU GILL MD Report ??Date: 03/30/2012 16:19 By the signature above, the attending physician certif ies that he/she has personally conducted a gross and/or microscopic examin ation of the described specimens and rendered or confirmed the above diagnosi s. Specimen(s) Received: ? Excise right protestant lesion Clinical History: ? Skin lesion right protestant Gross Description: ? Received in formalin labelled Connie Rodrigues and lesion right protestant is an unoriented elliptical excision of fang -white skin measuring 1.4 x 0.8 cm and is excised to a depth of 0.3 cm. ??There is an eccentric 0.8 x 0.5 ??by less than 0.1 cm fang-white and smooth, focally ulcerated papule. ??The margins are inked. The specimen is serially sectioned and entirely submit candida as (A1)central sections and (A2)tips, reverse en face. ??(Juanita Kimble)/mm s End of Report Specimen Performing Organization Address City/State/ZIP Code Phon e Number [facility] [address] [place] [address] SERVICES [facility] [address] [place] [address] documented in this encounter Visit Diagnoses Not on filedocumented in this encounter
--- OUTSIDE RECORDS SUMMARY | 2022-03-14 00:37 | XMS_ITS | Encounter Summary ---
:1950 Author Organization [facility] Address [address] [place] [address] Care Team Providers Name Role Phone Scarlet Glynn MD Primary Care Provider Encounter Details Date Type Department Care Team Description 07/06/2020 Lab Requisition [facility] Outr Resulting Lab, Pathology & Laboratory Provider [facility] [address] [place], [place] [id number] Social History Tobacco Use Types Packs/Day Years Used Date Never Assessed Sex Assigned at Date Recorded Not on file documented as of this encounter Plan of Treatment Not on filedocumented as of this encounter Procedures Procedure Name Priority Date/Time Associated Comments Diagnosis DO NOT ORDER Today 07/06/2020 13:29 Results for this STANDALONE - BROAD EST procedure are in COVID TEST the results section. COVID-19 TESTING Routine 07/06/2020 13:29 Results for this EST procedure are i n the results section. documented in this encounter Results DO NOT ORDER STANDALONE - BROAD COVID TEST (07/06/2020 13:29 EST) COVID-19 rt-PCR NEGATIVE Negative [facility] Result Comment: LABORATORY 2019-novel Coronavirus (2019 -nCoV) not detected by the qRT-PCR assay. Consider testing for other respiratory viruses or re-collecting for 2019-nCoV testing. Note: Optimum timing for peak viral levels du ring infections caused by 20 -nCoV have not been determined. Collection of multiple specimens from the same patient may be necessary to detect the virus. Limitations Positive results are indicat sophia of active infection with SARS-CoV-2 but do not rule out bacterial infection or co-infection with other viruses. The agent detected may not be the definite cause of diseas e. In addition, detection of viral RNA may not indicate the presence of infectious virus or that SARS-CoV-2 is the causative agent for clinical symptoms. Negative results do not prec lude SARS-CoV-2 infection and should not be used as the sole basis for patient management decisions. Negative results must be combined with clinical observations, patient his tory, and epidemiological in formation. False negative results may also occur if amplification inhibitors are present in the specimen or if inadequate numbers of organisms are present in the specimen. Op timum specimen types and erwin ing for peak viral levels during infections caused by SARS-CoV-2 have not been fully determined. Collection of multiple specimens (types and time points) from the same patient may be necessary to detect the virus. The test was validated for u se with upper respiratory specimens obtained via nasopharyngeal or oropharyngeal swabs in VTM, UTM, M4, M5, M6, saline, and MTM media. The performance of this test has not be en established for other spe cimens. Specimens collected using other FDA recommended Specimen Collection Materials listed in the FDA COVID-19 [employer] communication (October 13, 2019) are pr ocessed with the caveat that they were not all validated for use with this test and the result must be interpreted in this context. Furthermore, a false negative results may occur if a specimen is improperly collected, transported or handled. If the virus mutates in the RT-PCR target region, SARS-CoV-2 may not be detected or may be detected less predictably. Inhibitors or other types of interference may produce a false negative result. An interference study evaluating the effect of common cold medications was not performed. This test is not FDA-cleared but its performance characteristics were established by our CLIA-certified, CAP-accredited, high complexity laboratory in accordance with CLIA regulations, [employer] of [place] an Pathologists (CAP) guidel renetta (Oct 06, 2019), and FDA guidance (Sep 17, 2019). This test is only for use un nette the Food and Drug Administration's Emergency Use Authorization. Specimen Swab - Entire nasopharynx (body structur e) Performing Organization Address City/State/ZIP Code Phon e Number [facility] [place] [place] COVID-19 TESTING (07/06/2020 13:29 EST) COVID-19 rt-PCR NEGATIVE Negative [facility] Result Comment: LABORATORY 2019-novel Coronavirus (2019 -nCoV) not detected by the qRT-PCR assay. Consider testing for other respiratory viruses or re-collecting for 2019-nCoV testing. Note: Optimum timing for peak viral levels du ring infections caused by 20 -nCoV have not been determined. Collection of multiple specimens from the same patient may be necessary to detect the virus. Limitations Positive results are indicat sophia of active infection with SARS-CoV-2 but do not rule out bacterial infection or co-infection with other viruses. The agent detected may not be the definite cause of diseas e. In addition, detection of viral RNA may not indicate the presence of infectious virus or that SARS-CoV-2 is the causative agent for clinical symptoms. Negative results do not prec lude SARS-CoV-2 infection and should not be used as the sole basis for patient management decisions. Negative results must be combined with clinical observations, patient his tory, and epidemiological in formation. False negative results may also occur if amplification inhibitors are present in the specimen or if inadequate numbers of organisms are present in the specimen. Op timum specimen types and erwin ing for peak viral levels during infections caused by SARS-CoV-2 have not been fully determined. Collection of multiple specimens (types and time points) from the same patient may be necessary to detect the virus. The test was validated for u with upper respiratory specimens obtained via nasopharyngeal or oropharyngeal swabs in VTM, UTM, M4, M5, M6, saline, and MTM media. The performance of this test has not be en established for other spe cimens. Specimens collected using other FDA recommended Specimen Collection Materials listed in the FDA COVID-19 [employer] communication (October 13, 2019) are pr ocessed with the caveat that they were not all validated for use with this test and the result must be interpreted in this context. Furthermore, a false negative results may occur if a specimen is improperly collected, transported or handled. If the virus mutates in the RT-PCR target region, SARS-CoV-2 may not be detected or may be detected less predictably. Inhibitors or other types of interference may produce a false negative result. An interference study evaluating the effect of common cold medications was not performed. This test is not FDA-cleared but its performance characteristics were established by our CLIA-certified, CAP-accredited, high complexity laboratory in accordance with CLIA regulations, College of [facility] an Pathologists (CAP) guidel renetta (Oct 06, 2019), and FDA guidance (Sep 17, 2019). This test is only for use un nette the Food and Drug Administration's Emergency Use Authorization. Performing Lab [facility] LABORATORY SERVICES Specimen Swab Performing Organization Address City/State/ZIP Code Phon e Number [facility] [address] [place] [address] SERVICES [facility] [place], [place] documented in this encounter Visit Diagnoses Not on filedocumented in this encounter Care Teams [employer] Supervisor Relationship Specialty Start Date End Date Scarlet Glynn MD PCP - General 04/01/12 [facility] [address] [place] [phone] documented as of this encounter
--- OUTSIDE RECORDS SUMMARY | 2022-03-14 00:37 | XMS_ITS | Encounter Summary ---
:1950 Author Organization [facility] Address [address] [place] [address] Care Team Providers Name Role Phone Scarlet Glynn MD Primary Care Provider Encounter Details Date Type Department Care Team Description 07/30/2012 Results Only [facility] Dereje Cohen , Laboratory Services - [address] [place] [address] [place] [address] [phone] Social History Tobacco Use Types Packs/Day Years Used Date Never Assessed Sex Assigned at Date Recorded Not on file documented as of this encounter Plan of Treatment Not on filedocumented as of this encounter Procedures Procedure Name Priority Date/Time Associated Diagnosis Comme [facility] SURGICAL PATHOLOGY Routine 07/30/2012 7:43 EST Re sults for this procedure are i n the results section. documented in this encounter Results SURGICAL PATHOLOGY (07/30/2012 7:43 EST) Pathology Report: SURGICAL PATHOLOGY REPORT [facility] Reports generated via electronic interface contain branden ginal data; LAB however they are lacking the format of the original re port. Caution should be taken when reading/interpreting unfo rmatted reports. Name: ? CONNIE RODRIGUES ? Accession #: ? [id number] ? : ? 1950 (Age: 62) ??M ? Collect Date: ? 07/30/2012 ? Location: ? [facility] ? Receive Date: ? 013 ? Provider: DEREJE COHEN DO Copy to: SCARLET GLYNN MD ? Final Pathologic Diagnosis: ? Skin of yazidi, right, re-excision: 1. ?Residual basal cell carcinoma, nodula r type. ? - Margins of excision negative. ?- Lesion measures approximately 0.5 [address] st (posterior) margin. ??- Lesion measures approximately 3.0 mm to the anter ior margin. ? 2. ?? Epidermal reparative change and dermal sc ar. Document reviewed and electronically signed by: EDU STILL MD Report ??Date: 08/03/2012 14:04 By the signature above, the attending physician certif ies that he/she has personally conducted a gross and/or microscopic examin ation of the described specimens and rendered or confirmed the above diagnosi s. Specimen(s) Received: ? Rt yazidi lesion, suture superior Clinical History: ? Rt yazidi basal cell CA re-excision Gross Description: ? Received in formalin labelled Connie Rodrigues and Rt yazidi lesion, suture superior is an oriented elliptical excision of fang-white skin with a suture at one tip designating superior[facility]. ??The specimen measures 1.6 cm from superior to inferior, 0.7 cm from anterior to posterior, and excised to a depth of 0.3 cm. ??The surgical margin of the anterior side is inked blue and the surg ical margin of the posterior side is inked aundrea k. ??The specimen is serially sectioned and entirely submitted as follows: BLOCK KAISER A1 ?Superior tip, reverse en face A2, A3 ?Central sections A4 ?Inferior tip, reverse en face (Juanita Kimble)/ayaz End of Report Specimen Performing Organization Address City/State/ZIP Code Phon e Number [facility] [address] [place] [address] SERVICES [facility] [address] [place] [address] documented in this encounter Visit Diagnoses Not on filedocumented in this encounter Care Teams Institutional Aide Relationship Specialty Start Date End Date Scarlet Glynn MD PCP - General 04/01/[address] [place] [phone] documented as of this encounter
--- OUTSIDE RECORDS SUMMARY | 2022-03-14 00:37 | XMS_ITS | Encounter Summary ---
:1950 Author Organization [facility] Address [address] [place] [address] Care Team Providers Name Role Phone Scarlet Glynn MD Primary Care Provider Encounter Details Date Type Department Care Team Description 04/29/2021 Lab Requisition [facility] Outr Resulting Lab, Pathology & Laboratory Provider [facility] [address], [place] [address] Social History Tobacco Use Types Packs/Day Years Used Date Never Assessed Sex Assigned at Date Recorded Not on file documented as of this encounter Plan of Treatment Not on filedocumented as of this encounter Procedures Procedure Name Priority Date/Time Associated Diagnosis Comme nts COVID-19 TEST [facility] Today 04/29/2021 11:00 LAB PCR EDT COVID-19 TESTING Routine 04/29/2021 11:00 Results for this EDT procedure are i n the results section. documented in this encounter Results COVID-19 TEST [facility] LAB PCR (04/29/2021 11:00 EDT) Specimen Swab - Entire nasopharynx (body structur e) Performing Organization Address City/State/ZIP Code Phon e Number [facility] [address] [place] [address] SERVICES COVID-19 TESTING (04/29/2021 11:00 EDT) COVID-19 rt-PCR Negative Negative [facility] Result Comment: [facility] This test has not been FDA c leared or approved. This test has been authorized by FDA under an EUA for use by authorized laboratories. This test has been authorized only for detection of nucleic acid fro SERVICES m 2018-nCoV, not for any oth er viruses or pathogens. This test is only authorized for the duration of the declaration that circumstances exist justifying the authorization of emergency use of in vitro d iagnostic tests for detectio n and/or diagnosis of 2019-nCoV under section 564(b)(1) of Act, 21 U.S.C ?? 360bbb-3(b) (1), unless the authorization is terminated or revoked sooner. Negative results do not prec lude 2019-nCoV infection and should not be used as the sole basis for treatment or other patient management decisions. Negative results must be combined with clinical observa tions, patient history, and epidemiological informatio n. Testing was performed using the isai SARS-CoV-2 assay ([employer] on the Isai 6800 System Performing Lab Isai 6800 [facility] Lab [facility] SERVICES Specimen Swab Performing Organization Address City/State/ZIP Code Phon e Number [facility] [address] [place] [address] SERVICES documented in this encounter Visit Diagnoses Not on filedocumented in this encounter Care Teams Snuff Container Inspector Relationship Specialty Start Date End Date Scarlet Glynn MD PCP - General 04/01/[address] [place] [address] [address] [place] [address] documented as of this encounter
--- OUTSIDE RECORDS SUMMARY | 2022-03-14 00:37 | XMS_ITS | Encounter Summary ---
:1950 Author Organization [facility] Address [address] [place] [address] Care Team Providers Name Role Phone Scarlet Glynn MD Primary Care Provider Encounter Details Date Type Department Care Team Description 03/26/2016 Historical Results [facility] - Kyle Ramirez MD Only [facility] [address],[facility] [address] [place], [place] [id number] [place] [address] [phone] Social History Tobacco Use Types Packs/Day Years Used Date Never Assessed Sex Assigned at Date Recorded Not on file documented as of this encounter Plan of Treatment Not on filedocumented as of this encounter Procedures Procedure Name Priority Date/Time Associated Diagnosis Comme nts XR CHEST 2 VIEWS 03/26/2016 15:06 EDT Res ults for this procedure are i n the results section. documented in this encounter Results XR CHEST 2 VIEWS (03/26/2016 15:06 EDT) Specimen Narrative [facility] - 03/26/2016 15:10 EDT ? EXAM: RADIOLOGY/CHEST (PA ?? LAT) ?EX. D/ (1246) ? CLINICAL INFORMATION: ? R07.9, CHEST PAIN ? INDICATION: R07.9, CHEST PAIN . ? COMPARISON: None. ? TECHNIQUE: 2 views of the chest w ere obtained. ? FINDINGS: The cardiomediastinal s ilhouette and pulmonary vasculature ? are within normal limits. The kvng gs are clear. No pleural effusion or ? pneumothorax is seen. There is a mild scoliosis of the thoracic ? spine. ? IMPRESSION: No acute process. ? REPORT SIGNED IN OTHER VENDOR SYSTEM 03/26/2016 ?Reported B y: David Diana MD ? CC: ? Transcribed Date/Time: 03/26/2016 (1510) ? Tractor Expert: ? Printed Date/Time: 12/31/2018 (12 05) ? PAGE 1 ? Marisol d Report ? Procedure Note David Diana MD - 05/25/2019 EXAM: RADIOLOGY/CHEST (PA LAT) EX. D/ (1246) CLINICAL INFORMATION: R07.9, CHEST PAIN INDICATION: R07.9, CHEST PAIN . COMPARISON: None. TECHNIQUE: 2 views of the chest were ob tained. FINDINGS: The cardiomediastinal silhoue tte and pulmonary vasculature are within normal limits. The lungs are clear. No pleural effusion or pneumothorax is seen. There is a mild s coliosis of the thoracic spine. IMPRESSION: No acute process. REPORT SIGNED IN OTHER VENDOR SYSTEM 03/26/2016 Reported By: David Diana MD CC: Transcribed Date/Time: 03/26/2016 (1510 ) Tractor Expert: Printed Date/Time: 12/31/2018 (8999) PAGE 1 Signed Report Performing Organization Address City/State/ZIP Code Phon e Number [facility] documented in this encounter Visit Diagnoses Not on filedocumented in this encounter Care Teams Sql Application Developer Relationship Specialty Start Date End Date Scarlet Glynn MD PCP - General 04/01/[address] [place] [id number] documented as of this encounter
--- NOTE | 2022-03-14 07:30 | DI.MRI_ITS ---
Exam(s) MR LOWER JOINT RT WO EXAM: MR LOWER JOINT RT WO CLINICAL HISTORY: poor recovery from Robina's tear 6 months ago,STRAIN,S86.019A TECHNIQUE: Multiplanar multisequence MRI of the knee was performed. COMPARISON: MR MR LOWER JOINT RT WO from 08/28/2021 FINDINGS: ACHILLES TENDON: Again noted is the chronic thickening and area previous full-thickness tear of the A chilles tendon. However, on the present study there appears to be some increasing substance in the A chilles tendon consistent with an element of healing although there is still significant signal abnor mality. AP thickness is 10-11 millimeters. On the medial aspect of the Achilles tendon the plantaris tendon is noted. On the present study it e xhibits some focal thickening to 4 millimeter diameter and signal abnormality at approximately 5 cm a franck the posterosuperior aspect of the calcaneus. No abnormal intraosseous signal in the calcaneus and other bones of the ankle. Talar dome appears unremarkable. No ankle joint effusion. Subtalar joint appears unremarkable. No new findings in the sinus tarsi area No evidence of tearing of the plantar fascia. No other tendon tears on either side of the ankle nor tenosynovitis. IMPRESSION: 1. Compared to the prior MRI scan of 08/28/2021 there is again noted evidence of a full-thickness tea r of the Achilles tendon superimposed upon chronic tendinosis/thickening. Although there is still si gnificant signal abnormality in the tendon, there does appear to be some healing occurring. 2. The adjacent plantaris tendon (on the medial aspect of the Achilles) is focally thickened to 4 mi llimeter diameter approximately 5 cm above the posterior calcaneus insertion. It exhibits some inter nal signal but no full-thickness tear. 3. No other new additional findings. DATA REPOSITORY:
== END ==
PROVIDERS: PCP Family Medicine; Visit Provider Family Medicine
DX: S86.011D Strain of right Achilles tendon, subsequent encounter; M76.61 Achilles tendinitis, right leg
CPT/HCPCS: 73721

== ENCOUNTER 2022-04-08 07:37 | Day surgery (SDC) | payer MEDICARE, SELFPAY ==
--- NOTE | 2022-04-07 10:54 | PDOC.DSDIS_ITS ---
Discharge Plan Disposition Patient Disposition: HOME Condition: Good Discharge Details Reason For Visit: colon scope Attending Provider: Leidy Connelly Primary Care Provider: Victoriano Torres Home Meds and New Rx's Prescriptions: No Action aspirin [Adult Aspirin Regimen] 81 mg tablet,delayed release (DR/EC) 81 mg PO DAILY polyethylene glycol 3350 17 gram/dose powder 238 g PO ONCE Qty: 238 0RF Rx Instructions: take per colonoscopy instructions bisacodyl [Dulcolax (bisacodyl)] 5 mg tablet,delayed release (DR/EC) 5 mg PO ONCE Qty: 4 0RF Rx Instructions: take per colonoscopy instructions sildenafil [Viagra] 100 mg tablet 100 mg PO DAILY MDD 100mg Qty: 24 12RF Rx Instructions: 1 hour prior to sex mirabegron 50 mg tablet extended release 24 hr 50 mg PO DAILY Qty: 90 3RF Discharge Instructions Additional Instructions: DSU Colonoscopy Post- Op Instructions Instructions for Everyone who is given Anesthesia: For your safety, please do the following for the next twenty-four (24) hours: *Do Not operate a motor vehicle (car, truck, motorcycle, etc.) *Do Not drink alcoholic beverages or use any recreational drugs for the first 24 hours or while taking pain medications. The medications in your body may have a reaction that can be dangerous. *Do Not make any important decisions or sign any important papers. Findings: -minor divertivula -small polyp Follow up: Repeat in 7 yrs time 1. No lifting over 20 pounds or strenuous activity for the first 24 hours after your procedure. After 24 hours there are no restrictions on your activity but you may feel fatigued for a few days. 2. After you arrive home you may have a light meal and return to your normal diet as you can tolerate it without feeling sick to your stomach. 3. You may have a bloated, gaseous feeling in your belly (abdomen) after a colonoscopy. Passing gas and belching will help. Walking or lying down on your left side with your knees flexed may relieve the discomfort. Call the office at [phone] (Office) or [phone] (Hospital) right away if you notice any of the following: a.Vomiting of blood or ?coffee ground stools?. b.Rectal bleeding 1Tbsp, blood clots or continuous bleeding. c.Severe belly (abdominal) pain. d.A hard distended belly (abdomen) and an inability to pass gas. 4. Please don?t expect to have a normal BM (bowel movement) for 2-3 days after your procedure. 5. If there are questions regarding the findings of your procedure, please contact your doctor 6. If you are unable to contact your doctor with a problem, contact the hospital at [phone]. 7. Continue all your regular medications unless directed otherwise. I understand the above instructions and have no questions. Signature of Patient or Adult Escort Name of Responsible Adult Escort Signature of Nurse Date/Time Activity:: see above Diet:: see above Discharge Orders Discharge Orders: Discharge Order (Routine); Ordered 04/07/22 Ordered By: Leidy Connelly
--- NOTE | 2022-04-07 10:54 | W.COLOREPORT ---
Colonoscopy Report Date of procedure: 04/08/22 Pre-op diagnosis general: CRC screen Post-op diagnosis procedure note: other (polyps/diverticula) Surgeon: Leidy Connelly Anesthesia Type: General:No Airway Estimated blood loss (mL): 1 Pathology: other Complications: None Disposition: same day Prep: Miralax/Dulcolax Retraction Time: 8 mins Procedure Description: After informed consent was obtained the patient was taken to the procedure room and placed in a left decubitous position. Monitors were applied and a time out was done. The patients name, date of , procedure, allergies to medications and metal in their body was reviewed. The patient was then sedated. Once sedated and comfortable a rectal exam was done. External exam was normal. Internal exam revealed a normal sphincter tone and no palpable masses. The prostate nl. The scope was then introduced and retrofelexed. No internal hemorrhoids were identified. The scope was then advanced to the cecum w/out difficulty. The TI and appendiceal orifice were identified. The prep was BBPS 2 in all segment for a total of 6. The scope was then slowly retracted over 8 minutes back into the rectum. Polyps were removed at rectum w/ a cold forcepts. He does have a few small mouth diverticuli that do extend all the way over to the transverse colon. The mucosa is pink and healthy with a normal vascular pattern. The scope was removed and the patient was woken up and taken back to Same day surgery in stable condition. The patient tolerated the procedure well and there were no immediate complications. Follow up: The patient should follow up in 7 years unless they develop changes in bowel habits or other new gastrointestinal complaints.
[2022-04-08 07:45] VITALS: BP 146/73; PULSE 58; RESP 18; TEMP 37; O2SAT 99
[2022-04-08] MEDS: Lactated Ringers 1,000 ML 80 ML IV (08:25)
--- NOTE | 2022-04-08 09:15 | ANES.PREOP_ITS ---
General Info Date of Service Date Performed: 04/08/22 Height: 6 ft 1 in Weight: 84 kg Body Mass Index (BMI): 24.4 Surgical Procedure: Operation Date: 04/08/22 09:05 Proposed Procedure Side Surgeon p Hakan Connelly DO Meds Allergies and Home Medications Allergies Allergy/AdvReac Type Severity Reaction Status Date / Time Penicillins Allergy Mild Hives Verified 04/08/22 08:07 atorvastatin AdvReac Intermediate myalgias Verified 04/08/22 08:07 Home Medication Medication Instructions Recorded sildenafil 100 mg tablet (Viagra) 100 mg PO DAILY #24 tab-caps 08/08/21 aspirin 81 mg tablet,delayed 81 mg PO DAILY 10/01/21 release (Adult Aspirin Regimen) bisacodyl 5 mg tablet,delayed 5 mg PO ONCE colonscopy bowel prep 03/10/22 release (Dulcolax (bisacodyl)) #4 tabs polyethylene glycol 3350 17 238 g PO ONCE colonoscopy prep 03/10/22 gram/dose oral powder #238 grams mirabegron 50 mg tablet,extended 50 mg PO DAILY #90 tabs 03/29/22 release 24 hr Current Visit Medications: Current Medications Generic Name Dose Route Start Last Admin Trade Name Freq PRN Reason Stop Dose Admin Hyoscyamine Sulfate 0.125 mg 04/07/22 10:53 Hyoscyamine 0.125 Mg Sl/Oral/Chew SL DIRECTED PRN Ringer's Solution 1,000 mls @ 0 mls/hr 04/08/22 06:00 04/08/22 08:25 IV 05/07/22 23:59 80 mls/hr INFUSION EYAD Administration IV Miscellaneous Supplies 1 each 04/08/22 06:00 Iv Access IV 05/07/22 23:59 DIRECTED EYAD Ondansetron HCl 4 mg 04/07/22 10:53 Ondansetron 4 Mg/2 Ml Vial IVP Q4H PRN PRN Nausea / Vomiting Sodium Chloride 0 ml 04/08/22 06:00 Normal Saline Flush 10 Ml Syr IV 05/07/22 23:59 PRN PRN Sodium Chloride 0 ml 04/08/22 06:00 Normal Saline 10 Ml Vial IJ 05/07/22 23:59 DIRECTED PRN Sterile Water 0 ml 04/08/22 06:00 Water,Injection,Sterile 10 Ml Vial IJ 05/07/22 23:59 DIRECTED PRN PFSH Active Problems Active Problems: Problem Status Onset Code Benign prostatic hyperplasia 06/09/17 N40.0 Chest pain 01/02/15 R07.9 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 Basal cell carcinoma (BCC) C44.91 Arthralgia M25.50 Dysphagia R13.10 Globus sensation R09.89 Pharyngeal dysphagia R13.13 Achilles tendon tear S86.019A Swelling of right lower extremity M79.89 COVID-19 U07.1 Lower urinary tract symptoms (LUTS) R39.9 Adjustment disorder F43.20 Surgical History Surgical History H/O colonoscopy H/O vasectomy Tobacco Smoking/Tobacco Use Status: Never Passive smoking exposure: No Alcohol Alcohol Intake: current Alcohol intake frequency: a few times a week Alcohol type: beer Substance Use Substance use: Never Substance use type: does not use Vital Signs and Lab Results Vital Signs Most Recent Vital Signs in EMR: Most Recent Vital Signs Temp Pulse Resp BP Pulse Ox 37.0 C 58 L 18 146/73 H 99 04/08/22 07:45 04/08/22 07:45 04/08/22 07:45 04/08/22 07:45 04/08/22 07:45 Lab Results Blood Type / Crossmatch: No Data to Display Complete Blood Count: No Data to Display Complete Metabolic Panel: No Data to Display Liver Function Panel: No Data to Display Coagulation Panel: No Data to Display Cardiac Panel: No Data to Display Arterial Blood Gas: No Data to Display Venous Blood Gas: No Data to Display Pancreas Panel: No Data to Display Thyroid Panel: No Data to Display Infectious Disease: No Data to Display Blood Cultures: No Data to Display Toxicology Panel: No Data to Display Anesthesia Assessment and Plan Anesthesia History Personal History: No History of Anesthesia Complications Family History: No Family History of Anesthesia Complications Exercise Tolerance Exercise Tolerance: Metabolic Equivalents>4 Pertinent Negatives Pertinent Negatives: No Symptoms of GERD, No Major Cardiovascular Symptoms or Complaints, No Major Pulmonary Symptoms or Complaints and No History of CVA/TIA Cardiac & Pulmonary Exam Cardiac Exam: Normal S1/S2 Heart Sounds Pulmonary Exam: Clear Bilateral Breath Sounds Implantable Cardiac Device Does patient have a Pacemaker or an ICD?: No Airway Exam Known Difficult Airway: No Mallampati Class: 1 Mouth Opening: Normal (> 3cm) Thyromental Distance: Greater than 3 cm Neck Range of Motion: Full ROM Neck Circumference: Normal Teeth Condition: Normal Dentition ASA Classification ASA Score: ASA 2 Emergency Case?: No NPO Status NPO Status: NPO Clears >2 hours, Solids >8 hours Anesthesia Plan Resuscitation Status: Full Code Anesthesia Technique: General Anesthesia Airway Planned: Natural Airway Monitors Used: Standard Monitors
[2022-04-08 09:17] VITALS: BMI 24.4
--- NOTE | 2022-04-08 10:15 | BOWEL_PTH ---
PATIENT: Bulmaro Rodrigues LOC: [facility] U#:[id number] AGE/SX: 71/M ROOM: RE04/08/[address]: Leidy Connelly : 1950 BED: DIS: 04/08/2022 SPEC #: [id number] RECD: 04/08/22 12:36 STATUS: GABE REQ #: [id number] MARTÍN: 04/08/22 10:[address]: Leidy Connelly DEPT: Surgical Specimen RECD BY: Juani Walter ENTERED: 04/08/22 12:36 SP TYPE: Bowel OTHR DR: Victoriano Torres MD Tissues: 1 - BIOPSY BOWEL Procedures: GROSS AND MICRO LEVEL 4 Comments: [id number]
[2022-04-08 10:30] VITALS: BP 127/77; PULSE 55; RESP 20; TEMP 36.4; O2SAT 96
--- NOTE | 2022-04-08 10:34 | W.ANESPOSTOP ---
Postoperative Evaluation Date, Time and Location Date Performed: 04/08/22 Time Performed: 10:34 Patient Location: Day Surgery Unit Vital Signs Most Recent Imported Vital Signs: Most Recent Vital Signs Temp Pulse Resp BP Pulse Ox 37.0 C 58 L 18 146/73 H 99 04/08/22 07:45 04/08/22 07:45 04/08/22 07:45 04/08/22 07:45 04/08/22 07:45 Most Recent Manually Entered Vital Signs: Adult Blood Pressure: 127/77 Heart Rate: 61 Respirations: 12 Oxygen Saturation (%): 98 Temperature (C): 36.3 C Pain Score (0-10 Scale): 0 Assessment Mental Status: Awake (Alert & Oriented to Patient Baseline) Airway and Respiratory Function: Patent airway with normal (patient baseline) respiratory exam Cardiovascular Function: Hemodynamically Stable Hydration Status: Adequately Hydrated Nausea & Vomiting: No Nausea or Vomiting Pain: Pt. Denies Any Pain Peripheral Nerve Block: Patient did not receive a nerve block
[2022-04-08 10:35] VITALS: BP 127/77; PULSE 61; RESP 12; TEMPC 36.3; O2SAT 98
[2022-04-08 11:00] VITALS: BP 133/68; PULSE 51; RESP 16; TEMP 37; O2SAT 99
== END 2022-04-08 11:48 | disposition home or self-care (01) ==
PROVIDERS: PCP Family Medicine; Visit Provider Surgery
PROC: 0DJD8ZZ Inspection of Lower Intestinal Tract, Via Natural or Artificial Opening Endoscopic (ICD-10-PCS; CPT 45378; principal; 2022-04-08 09:00)
DX: Z12.11 Encounter for screening for malignant neoplasm of colon (principal); K62.1 Rectal polyp; K57.30 Diverticulosis of large intestine without perforation or abscess without bleeding
CPT/HCPCS: 45380; 88305

== ENCOUNTER 2023-01-14 01:56 | Outpatient (CLI) | payer OTHER, SELFPAY ==
--- NOTE | 2023-01-14 08:36 | DI.RAD_ITS ---
Exam(s) XR ANKLE RT COMPLETE EXAM: XR ANKLE RT COMPLETE CLINICAL HISTORY: chronic ankle pain, s/p Achilles tear one year ago,m25.571. TECHNIQUE: 2D digital imaging was performed of the right ankle. Four images were obtained. AP, lat eral and oblique views were obtained. COMPARISON: MR MR LOWER JOINT RT WO from 03/14/2022 FINDINGS: BONES: No acute fracture is present. No bony destructive lesion is seen. There is a small plantar ca lcaneal spur. JOINTS: The ankle mortise is normally aligned. There is mild spurring at the anterior tibia. SOFT TISSUE: Atherosclerosis is present. IMPRESSION: Mild degenerative changes of the tibial talar joint anteriorly. DATA REPOSITORY: RADIATION DOSE DELIVERED:
== END 2023-01-14 02:16 ==
PROVIDERS: PCP Family Medicine; Visit Provider Family Medicine
DX: M19.072 Primary osteoarthritis, left ankle and foot
CPT/HCPCS: 73610

== ENCOUNTER 2024-04-25 08:05 | Outpatient (CLI) | payer OTHER, SELFPAY ==
[2024-04-25 12:26] LABS: ESR 6 mm/hr (0-20)
[2024-04-25 12:28] LABS: Abs Immature Grans 0.02 10^3/uL (0.0-0.06); Absolute Basophil Count 0.04 10^3/uL (0.0-0.2); Absolute Eosinophil Count 0.11 10^3/uL (0.0-0.7); Absolute Lymphocyte Count 2.77 10^3/uL (1.2-3.4); Absolute Neutrophil Count 4.27 10^3/uL (1.2-6.7); Basophils % 0.5 %; Eosinophils % 1.4 %; HCT 50.1 % (40.0-50.0); HGB 16.8 g/dL (13.5-17.5); Immature Grans % 0.3 %; Lymphocytes % 35.5 %; MCHC 33.5 % (32.0-36.0); MCV 95 fL (80-95); MPV 10.1 fL (8.0-11.0); Monocytes % 7.7 %; Neutrophils % 54.6 %; Platelet Count 244 10^3/uL (130-400); RBC 5.25 10^6/uL (4.36-5.78); RDW 11.7 % (11.8-14.1); RDW-SD 40.6 fL; WBC 7.81 10^3/uL (4.4-10.8)
[2024-04-25 13:07] LABS: ALT 23 U/L (16-63); AST 14 U/L (15-37); Alkaline Phosphatase 50 U/L (46-116); Anion Gap 10.5 mmol/L (3-11); BUN 20 mg/dL (7-18); Bilirubin, Total 0.62 mg/dL (0.2-1.0); CO2 24.5 mmol/L (21.0-32.0); Calcium 9.4 mg/dL (8.5-10.1); Chloride 108 mmol/L (98-107); Estimated GFR 79.47 (mL/min/1.73m2); Glucose 119 mg/dL (74-106); Potassium 4.6 mmol/L (3.5-5.1); Sodium 143 mmol/L (136-145); TSH (W/Ref FT4) 2.76 uIU/mL (0.36-3.74); Total Protein 7.7 g/dL (6.4-8.2)
[2024-04-25 13:18] LABS: C-Reactive Protein < 0.50 mg/dL (<or=0.5)
[2024-04-25 17:30] LABS: Rheumatoid Factor 17.2 IU/mL (<12.0)
[2024-04-26 09:30] LABS: Cyclic Citrullinated Peptide <2.5 U/mL (<5.0)
[2024-04-26 10:17] LABS: Lyme Ab w Rflx to Lyme Confirm Negative (Negative)
[2024-04-26 11:33] LABS: ANA Interpretation Negative (Negative)
[2024-04-26 15:54] LABS: Uric Acid 6.4 mg/dL (3.5-7.2)
[2024-04-26 15:56] LABS: Lab Add On Test DONE
[2024-04-26 16:39] LABS: Vitamin B12 484 pg/mL (193-986)
[2024-04-28 00:24] LABS: Anaplasma phagocytophilum Negative (Negative); B. miyamotoi PCR Negative (Negative); Babesia divergens/MO-1 Negative (Negative); Babesia duncani Negative (Negative); Babesia microti Negative (Negative); Ehrlichia chaffeensis Negative (Negative); Ehrlichia ewingii/canis Negative (Negative); Ehrlichia muris eauclairensis Negative (Negative)
== END 2024-04-25 08:06 | disposition home or self-care (01) ==
LOC: LOS 08:06
PROVIDERS: PCP Family Medicine; Referring Provider Nurse Practitioner Family; Visit Provider Nurse Practitioner Family
DX: M25.50 Pain in unspecified joint (principal); R53.83 Other fatigue; M79.10 Myalgia, unspecified site
CPT/HCPCS: 36415; 80053; 85652; 86200; 87798; 82607; 84443; 84550; 85025; 86038; 86140; 86431; 86618